=== PATIENT | male | born 1965 | race Caucasian/White ===

== ENCOUNTER 2018-05-12 06:22 | Observation (INO) ==
[2018-05-12] MEDS ORDERED: Ondansetron 4 MG/2 ML VIAL IVP ONE (06:39)
[2018-05-12] MEDS ORDERED: 0.9 % Sodium Chloride 1,000 ML IVC ONE ×3 (06:39→11:55)
[2018-05-12] MEDS ORDERED: *HR* Promethazine 25 MG/ML VIAL IM ONE (06:54)
--- NOTE | 2018-05-12 06:56 | Emergency Department Note ---
Disposition Clinical Impression: Diabetic ketosis, Dehydration Intractable nausea and vomiting Qualifiers: Vomiting type: unspecified Qualified Code(s): R11.2 - Nausea with vomiting, unspecified Disposition: Admitted As Inpatient Condition: Fair Referrals: Aneta Russell MD [Primary Care Provider] - Nausea/Vomiting/Diarrhea HPI - General Chief complaint: ED Nausea/Vomiting/Diarrhea Stated complaint: vomiting x1 month Time Seen by Provider: 05/12/18 06:38 Source: patient, family Mode of arrival: private vehicle Limitations: no limitations Nursing Notes Reviewed: Yes Vital Signs Reviewed: Yes - History of Present Illness Pt Subjective Complaint: nausea, vomiting Onset (ago): month(s) Description of emesis: food contents, watery Number of episodes of emesis: 10 Associated Abdominal Pain: Yes ("Just sore from wretching") If pain, Location of pain: epigastric ("Muscles") Radiation: diffuse Severity: mild Severity scale (1-10): 1 Quality: other ("Sore") Improves with: nothing Worsens with: vomiting Context: recent surgery/procedure, other (Hx of frequent, recurrent, intractable N/V. ) Associated symptoms: Reports: malaise, nausea/vomiting. Denies: myalgias, chest pain, cough, diaphoresis, fever/chills, headaches, loss of appetite, rash, dysuria, shortness of breath, syncope, weakness - Related Data Allergies Allergy/AdvReac Type Severity Reaction Status Date / Time No Known Allergies Allergy Verified 05/12/18 06:27 All systems ED: reviewed and negative except as stated. Review of Systems: As Per HPI Constitutional: Denies: fever, chills, weakness, weight change, night sweats Eyes: Denies: vision change ENT ED: Denies: throat pain, congestion, dysphagia Cardiovascular: Denies: chest pain, palpitations, dyspnea on exertion, orthopnea, syncope Respiratory: Denies: cough, dyspnea, wheezes Gastrointestinal: Reports: as per HPI, abdominal pain, nausea, vomiting. Denies: diarrhea, constipation, hematemesis, melena, hematochezia Genitourinary: Denies: dysuria Musculoskeletal: Denies: back pain, neck pain, joint swelling Integumentary: Denies: rash Neurological: Denies: headache, weakness, vertigo Hematological/Lymphatic: Denies: easy bleeding, easy bruising, lymphadenopathy Past Medical History - Past Medical History Attestation: Yes The following information was validated with the patient. Source: patient Medical history: Reports: diabetes, hyperlipidemia, hypertension, other ("mild stroke" and a "Light heart attack" (no stents)) Psychiatric history: Reports: no psych history - Social History Smoking Status: Unknown if ever smoked Exposure to secondhand smoke: No Smokeless Tobacco Status: No Alcohol use: Reports: none Drug use: Reports: none Physical Exam - General Limitations: no limitations General appearance: alert, in distress (vomiting) - Head Head exam: atraumatic, normocephalic, normal inspection - Eye Eye exam: Present: normal appearance, PERRL. Absent: scleral icterus, conjunctival injection, miosis, mydriasis, periorbital swelling - ENT ENT exam: mucous membranes dry - Neck Neck exam: Present: normal inspection, full ROM, trachea midline. Absent: tenderness, meningismus - Chest Chest inspection: Present: normal inspection - Respiratory Respiratory exam: Present: normal lung sounds bilaterally. Absent: respiratory distress, wheezes, stridor, accessory muscle use, prolonged expiratory phase - Cardiovascular Cardiovascular exam: Present: regular rate, normal rhythm, normal heart sounds - Abdominal Exam Abdominal exam: Present: soft, Non-Tender, diminished bowel sounds. Absent: distention, guarding, rebound, rigidity, organomegaly, ascites, mass, pulsatile mass - Extremities Exam Extremities exam: Present: normal capillary refill. Absent: tenderness - Back Exam Back exam: Present: normal inspection - Neurological Exam Neurological exam: Present: alert, oriented X3, CN II-XII intact, normal gait - Psychiatric Psychiatric exam: Present: normal affect, normal mood - Skin Skin exam: Present: warm, dry, intact, normal color Course Course Narrative: Patient with history of intermittently controlled diabetes, hypertension, hyperlipidemia presents from home with his for evaluation of continued nausea and vomiting. He was seen at [facility] on the third for same complaints. He was admitted, rehydrated, had a CAT scan done which was normal and an EGD done, which showed mild esophagitis diffuse gastritis and bile acid reflux. He was transiently improved and was able to tolerate a "salad that was smaller than my hand." So he was discharged to home. He was given a prescription for omeprazole and Reglan which she did take. He tried to eat dinner - according to the diet restrictions described by the surgeon who did the EGD, but was unable to keep this down. He states that he vomited all night and this morning asked his to bring him here. Patient appears uncomfortable. He is actively vomiting, mostly bilious appearing fluid. There is no blood seen. He is a and O 3. Labs and meds ordered. Labs show diabetic ketosis. No anion gap. Normal pH on venous blood gas. Patient received 2 L of saline, Phenergan, Zofran and Reglan. Upon reevaluation, he states that he is still very nauseated and does not feel like he could tolerate anything by mouth at this time. Case discussed with the hospitalist. Patient has been accepted for admission. Vital Signs Temperature 97.7 F 05/12/18 06:25 Pulse Rate 82 05/12/18 06:25 Respiratory Rate 18 05/12/18 06:25 Blood Pressure 182/87 05/12/18 06:25 O2 Sat by Pulse Oximetry 97 05/12/18 06:25 Temperature 97.7 F 05/12/18 06:59 Pulse Rate 83 05/12/18 10:41 Respiratory Rate 16 05/12/18 09:43 Blood Pressure 185/101 05/12/18 10:41 O2 Sat by Pulse Oximetry 99 05/12/18 10:41 Oxygen Delivery Oxygen Delivery Room Air Nausea/Vomiting/Diarrhea - Medical Records Medical records reviewed: Yes I reviewed the patient's medical records. - Lab Data Lab results reviewed: Yes I reviewed the patient's lab results. Lab results narrative: Laboratory Last Values WBC 11.1 K/mcL (4.3-11.1) 05/12/18 07:07 RBC 4.89 M/mcL (4.19-5.50) 05/12/18 07:07 Hgb 14.2 g/dL (12.9-16.9) 05/12/18 07:07 Hct 41.0 % (37.5-50.1) 05/12/18 07:07 MCV 83.8 fL (83.0-100.0) 05/12/18 07:07 MCH 29.0 pg (28.0-33.3) 05/12/18 07:07 MCHC 34.6 g/dL (31.6-35.5) 05/12/18 07:07 RDW 12.4 % (11.5-14.5) 05/12/18 07:07 Plt Count 233 K/mcL (140-400) 05/12/18 07:07 MPV 11.1 fL (9.4-12.4) 05/12/18 07:07 Immature Gran % 0.5 % (0-4) 05/12/18 07:07 Seg Neutrophils % 82.9 % 05/12/18 07:07 Lymphocytes % 12.1 % 05/12/18 07:07 Monocytes % 4.2 % 05/12/18 07:07 Eosinophils % 0.0 % 05/12/18 07:07 Basophils % 0.3 % 05/12/18 07:07 Neutrophils # 9.2 K/mcL (1.6-8.9) H 05/12/18 07:07 Lymphocytes # 1.3 K/mcL (0.6-4.6) 05/12/18 07:07 Monocytes # 0.5 K/mcL (0.0-1.3) 05/12/18 07:07 Eosinophils # 0.0 K/mcL (0.0-0.6) 05/12/18 07:07 Basophils # 0.0 K/mcL (0.0-0.2) 05/12/18 07:07 VBG pH 7.38 pH Units (7.32-7.42) 05/12/18 10:53 VBG pCO2 42 mmHg (41-51) 05/12/18 10:53 VBG pO2 80 mmHg (25-50) H 05/12/18 10:53 VBG HCO3 25 mEq/L (21-27) 05/12/18 10:53 Sodium 133 mEq/L (136-145) L 05/12/18 07:07 Potassium 3.8 mEq/L (3.5-5.1) 05/12/18 07:07 Chloride 99 mEq/L (98-107) 05/12/18 07:07 Carbon Dioxide 22 mEq/L (23-29) L 05/12/18 07:07 BUN 11 mg/dL (6-20) 05/12/18 07:07 Creatinine 0.68 mg/dL (0.70-1.30) L 05/12/18 07:07 Est GFR ( Amer) > 60 (> 60) 05/12/18 07:07 Est GFR (Non-Af Amer) > 60 (> 60) 05/12/18 07:07 BUN/Creatinine Ratio 16 (6-26) 05/12/18 07:07 Glucose 297 mg/dL (70-105) H 05/12/18 07:07 Calculated Osmolality 286 (280-300) 05/12/18 07:07 Calcium 9.2 mg/dL (8.6-10.3) 05/12/18 07:07 Total Bilirubin 0.6 mg/dL (0.3-1.0) 05/12/18 07:07 AST 27 Units/L (13-39) 05/12/18 07:07 ALT 20 Units/L (7-52) 05/12/18 07:07 Alkaline Phosphatase 77 Units/L (34-104) 05/12/18 07:07 Serum Total Protein 7.1 g/dL (6.4-8.9) 05/12/18 07:07 Albumin 4.3 g/dL (3.5-5.7) 05/12/18 07:07 Globulin 2.8 g/dL (2.4-3.5) 05/12/18 07:07 Albumin/Globulin Ratio 1.5 (1.1-2.2) 05/12/18 07:07 Lipase 7 Units/L (11-82) L 05/12/18 07:07 Beta-Hydroxybutyric Acd 0.75 mmol/L (0.02-0.27) H 05/12/18 08:15 Urine Color Yellow (Yellow) 05/12/18 08:27 Urine Clarity Clear (Clear) 05/12/18 08:27 Urine pH 7.5 pH Units (5.0-8.0) 05/12/18 08:27 Ur Specific [place] 1.028 (1.010-1.025) H 05/12/18 08:27 Urine Protein Negative mg/dL (Neg-Trace) 05/12/18 08:27 Urine Glucose (UA) >=1000 mg/dL (Normal) H 05/12/18 08:27 Urine Ketones 80 mg/dL (Negative) H 05/12/18 08:27 Urine Blood Negative (Negative) 05/12/18 08:27 Urine Nitrite Negative (Negative) 05/12/18 08:27 Urine Bilirubin Negative (Negative) 05/12/18 08:27 Urine Urobilinogen Normal mg/dL (Normal) 05/12/18 08:27 Ur Leukocyte Esterase Negative (Negative) 05/12/18 08:27 Ur Culture Indicated? NO (NO) 05/12/18 08:27 Urine Opiates Screen Negative ng/mL (Adqsmq=997) 05/12/18 08:30 Ur Barbiturates Screen Negative ng/mL (Dzblsn=763) 05/12/18 08:30 Ur Phencyclidine Scrn Negative ng/mL (Cutoff=25) 05/12/18 08:30 Ur Amphetamines Screen Negative ng/mL (Fjdlid=4173) 05/12/18 08:30 U Benzodiazepines Scrn Negative ng/mL (Asrmag=376) 05/12/18 08:30 Urine Cocaine Screen Negative ng/mL (Cutoff= 300) 05/12/18 08:30 U Marijuana (THC) Screen Negative ng/mL (Cutoff = 50) 05/12/18 08:30 Ur Drug Screen Interp See Below 05/12/18 08:30 Result diagrams: 05/12/18 07:07 05/12/18 07:07 Lab Results 05/12/18 05/12/18 05/12/18 Range/Units 07:07 07:07 08:15 WBC 11.1 (4.3-11.1) K/mcL RBC 4.89 (4.19-5.50) M/mcL Hgb 14.2 (12.9-16.9) g/dL Hct 41.0 (37.5-50.1) % MCV 83.8 (83.0-100.0) fL MCH 29.0 (28.0-33.3) pg MCHC 34.6 (31.6-35.5) g/dL RDW 12.4 (11.5-14.5) % Plt Count 233 (140-400) K/mcL MPV 11.1 (9.4-12.4) fL Immature Gran % 0.5 (0-4) % Seg Neutrophils % 82.9 % Lymphocytes % 12.1 % Monocytes % 4.2 % Eosinophils % 0.0 % Basophils % 0.3 % Neutrophils # 9.2 H (1.6-8.9) K/mcL Lymphocytes # 1.3 (0.6-4.6) K/mcL Monocytes # 0.5 (0.0-1.3) K/mcL Eosinophils # 0.0 (0.0-0.6) K/mcL Basophils # 0.0 (0.0-0.2) K/mcL VBG pH (7.32-7.42) pH Units VBG pCO2 (41-51) mmHg VBG pO2 (25-50) mmHg VBG HCO3 (21-27) mEq/L Sodium 133 L (136-145) mEq/L Potassium 3.8 (3.5-5.1) mEq/L Chloride 99 (98-107) mEq/L Carbon Dioxide 22 L (23-29) mEq/L BUN 11 (6-20) mg/dL Creatinine 0.68 L (0.70-1.30) mg/dL Est GFR ( Amer) > 60 (> 60) Est GFR (Non-Af Amer) > 60 (> 60) BUN/Creatinine Ratio 16 (6-26) Glucose 297 H (70-105) mg/dL Calculated Osmolality 286 (280-300) Calcium 9.2 (8.6-10.3) mg/dL Total Bilirubin 0.6 (0.3-1.0) mg/dL AST 27 (13-39) Units/L ALT 20 (7-52) Units/L Alkaline Phosphatase 77 (34-104) Units/L Serum Total Protein 7.1 (6.4-8.9) g/dL Albumin 4.3 (3.5-5.7) g/dL Globulin 2.8 (2.4-3.5) g/dL Albumin/Globulin Ratio 1.5 (1.1-2.2) Lipase 7 L (11-82) Units/L Beta-Hydroxybutyric Acd 0.75 H (0.02-0.27) mmol/L Urine Color (Yellow) Urine Clarity (Clear) Urine pH (5.0-8.0) pH Units Ur Specific [place] (1.010-1.025) Urine Protein (Neg-Trace) mg/dL Urine Glucose (UA) (Normal) mg/dL Urine Ketones (Negative) mg/dL Urine Blood (Negative) Urine Nitrite (Negative) Urine Bilirubin (Negative) Urine Urobilinogen (Normal) mg/dL Ur Leukocyte Esterase (Negative) Ur Culture Indicated? (NO) Urine Opiates Screen (Walmrf=478) ng/mL Ur Barbiturates Screen (Qqqamg=222) ng/mL Ur Phencyclidine Scrn (Cutoff=25) ng/mL Ur Amphetamines Screen (Zisknh=7097) ng/mL U Benzodiazepines Scrn (Qgxssv=891) ng/mL Urine Cocaine Screen (Cutoff= 300) ng/mL U Marijuana (THC) Screen (Cutoff = 50) ng/mL Ur Drug Screen Interp 05/12/18 05/12/18 05/12/18 Range/Units 08:27 08:30 10:53 WBC (4.3-11.1) K/mcL RBC (4.19-5.50) M/mcL Hgb (12.9-16.9) g/dL Hct (37.5-50.1) % MCV (83.0-100.0) fL MCH (28.0-33.3) pg MCHC (31.6-35.5) g/dL RDW (11.5-14.5) % Plt Count (140-400) K/mcL MPV (9.4-12.4) fL Immature Gran % (0-4) % Seg Neutrophils % % Lymphocytes % % Monocytes % % Eosinophils % % Basophils % % Neutrophils # (1.6-8.9) K/mcL Lymphocytes # (0.6-4.6) K/mcL Monocytes # (0.0-1.3) K/mcL Eosinophils # (0.0-0.6) K/mcL Basophils # (0.0-0.2) K/mcL VBG pH 7.38 (7.32-7.42) pH Units VBG pCO2 42 (41-51) mmHg VBG pO2 80 H (25-50) mmHg VBG HCO3 25 (21-27) mEq/L Sodium (136-145) mEq/L Potassium (3.5-5.1) mEq/L Chloride (98-107) mEq/L Carbon Dioxide (23-29) mEq/L BUN (6-20) mg/dL Creatinine (0.70-1.30) mg/dL Est GFR ( Amer) (> 60) Est GFR (Non-Af Amer) (> 60) BUN/Creatinine Ratio (6-26) Glucose (70-105) mg/dL Calculated Osmolality (280-300) Calcium (8.6-10.3) mg/dL Total Bilirubin (0.3-1.0) mg/dL AST (13-39) Units/L ALT (7-52) Units/L Alkaline Phosphatase (34-104) Units/L Serum Total Protein (6.4-8.9) g/dL Albumin (3.5-5.7) g/dL Globulin (2.4-3.5) g/dL Albumin/Globulin Ratio (1.1-2.2) Lipase (11-82) Units/L Beta-Hydroxybutyric Acd (0.02-0.27) mmol/L Urine Color Yellow (Yellow) Urine Clarity Clear (Clear) Urine pH 7.5 (5.0-8.0) pH Units Ur Specific [place] 1.028 H (1.010-1.025) Urine Protein Negative (Neg-Trace) mg/dL Urine Glucose (UA) >=1000 H (Normal) mg/dL Urine Ketones 80 H (Negative) mg/dL Urine Blood Negative (Negative) Urine Nitrite Negative (Negative) Urine Bilirubin Negative (Negative) Urine Urobilinogen Normal (Normal) mg/dL Ur Leukocyte Esterase Negative (Negative) Ur Culture Indicated? NO (NO) Urine Opiates Screen Negative (Brhdrh=302) ng/mL Ur Barbiturates Screen Negative (Tyocor=666) ng/mL Ur Phencyclidine Scrn Negative (Cutoff=25) ng/mL Ur Amphetamines Screen Negative (Rosfny=1988) ng/mL U Benzodiazepines Scrn Negative (Slggkm=150) ng/mL Urine Cocaine Screen Negative (Cutoff= 300) ng/mL U Marijuana (THC) Screen Negative (Cutoff = 50) ng/mL Ur Drug Screen Interp See Below - Radiology Data Radiology results reviewed: Yes I reviewed the patient's radiology results.
[2018-05-12 07:40] LABS: Basophils % 0.3 %; Hemoglobin 14.2 g/dL (12.9-16.9); Immature Granulocytes % 0.5 % (0-4); Lymphocytes # 1.3 K/mcL (0.6-4.6); Lymphocytes % 12.1 %; Mean Corpuscular HGB Conc 34.6 g/dL (31.6-35.5); Mean Corpuscular Volume 83.8 fL (83.0-100.0); Mean Platelet Volume 11.1 fL (9.4-12.4); Monocytes # 0.5 K/mcL (0.0-1.3); Monocytes % 4.2 %; Neutrophils # 9.2 K/mcL (1.6-8.9); Platelet Count 233 K/mcL (140-400); Red Blood Count 4.89 M/mcL (4.19-5.50); Red Cell Distribution Width 12.4 % (11.5-14.5); Segmented Neutrophils % 82.9 %
[2018-05-12 07:47] LABS: Alanine Aminotransferase 20 Units/L (7-52); Albumin 4.3 g/dL (3.5-5.7); Albumin/Globulin Ratio 1.5 (1.1-2.2); Alkaline Phosphatase 77 Units/L (34-104); Aspartate Amino Transferase 27 Units/L (13-39); BUN/Creatinine Ratio 16 (6-26); Bilirubin,Total 0.6 mg/dL (0.3-1.0); Blood Urea Nitrogen 11 mg/dL (6-20); Calcium 9.2 mg/dL (8.6-10.3); Carbon Dioxide 22 mEq/L (23-29); Chloride 99 mEq/L (98-107); Globulin 2.8 g/dL (2.4-3.5); Glucose 297 mg/dL (70-105); Lipase 7 Units/L (11-82); Osmolality,Calculated 286 (280-300); Potassium 3.8 mEq/L (3.5-5.1); Sodium 133 mEq/L (136-145); Total Protein 7.1 g/dL (6.4-8.9); eGFR For Non-African Americans > 60 (> 60)
[2018-05-12 08:50] LABS: Bilirubin,Urine Negative (Negative); Blood,Urine Negative (Negative); Clarity,Urine Clear (Clear); Color,Urine Yellow (Yellow); Glucose,Urine (UA) >=1000 mg/dL (Normal); Ketones,Urine 80 mg/dL (Negative); Leukocyte Esterase,Urine Negative (Negative); Nitrite,Urine Negative (Negative); PH,Urine 7.5 pH Units (5.0-8.0); Protein,Urine Negative (Neg-Trace); Specific Gravity,Urine 1.028 (1.010-1.025); Urobilinogen,Urine Normal (Normal)
[2018-05-12 09:23] LABS: Amphetamine Screen,Urine Negative ng/mL (Cutoff=1000); Barbiturate Screen,Urine Negative ng/mL (Cutoff=200); Benzodiazepines Screen,Urine Negative ng/mL (Cutoff=200); Cannabinoid Screen,Urine Negative ng/mL (Cutoff = 50); Cocaine Screen,Urine Negative ng/mL (Cutoff= 300); Opiate Screen,Urine Negative ng/mL (Cutoff=300); Phencyclidine Screen,Urine Negative ng/mL (Cutoff=25)
[2018-05-12 10:55] LABS: VBG HCO3 25 mEq/L (21-27); VBG PCO2 42 mmHg (41-51); VBG PH 7.38 pH Units (7.32-7.42); VBG PO2 80 mmHg (25-50)
[2018-05-12] MEDS ORDERED: Metoclopramide 20 MG in 0.9 % Sodium Chloride 50 ML IVPB ONE (11:55)
--- NOTE | 2018-05-12 14:04 | Internal Med History&Physical ---
Date of Encounter: 05/12/18 Time of Encounter: 13:15 Internal Medicine - H&P: HPI Chief complaint: Nausea vomiting Admitted From: Home Plans for Post Hospital Care: Home History of present illness: Mr. De Los Santos is a 52 year old male with medical history significant for DMII, HTN, HLD. Pt states that for the last month he was having blood in his stool. EGD done at [facility] yesterday. Pt states that he ate a small salad and followed their recommended diet as well as taking Omeprazole and Reglan and began vomiting last night. He states that he vomited and had nausea all night. He presented to the ED where he was given IVF, Reglan, Phenergan, and Zofran and at the time of my assessment, he was feeling better. He states that his abdomen is sore from vomiting, but is diffusely tender to palpation. He denies any new hematuria or blood in stool. He does report fevers for the last 3 days, states that it was 101 at [place] yesterday. He did not check it at home, he states that he felt warm and achey. He is being admitted for managment of nausea and vomiting, as well as blood glucose. Time spent with pt approximately 20minutes. Past Med Surg Social Fam HX - Past Medical History Medical history: diabetes, hyperlipidemia, hypertension, other ("mild stroke" and a "Light heart attack" (no stents)) Psychiatric history: no psych history - Social History Smoking Status: Unknown if ever smoked Smokeless Tobacco Status: No Alcohol use: none Drug use: none Internal Medicine - H&P: Meds Allergy/AdvReac Type Severity Reaction Status Date / Time No Known Allergies Allergy Verified 05/12/18 06:27 All Systems PM: A 10-system review of systems was performed and is negative for pertinent findings except as documented above in the HPI. - Constitutional Constitutional: fatigue, fever(s), no anorexia, no chills, no falls, no lethargy, no night sweats, no weakness - EENT Eyes: no blurry vision, no decreased night vision, no loss of peripheral vision, no other visual disturbances Ears: no decreased hearing, no ear discharge, no ear pain, no tinnitus Nose, mouth and throat: no facial pain, no nasal congestion, no nasal discharge, no nasal obstruction, no post-nasal drip, no sinus pain, no sinus pressure, no sore throat - Cardiovascular Cardiovascular ROS IM: no chest pain, no edema, no irregular heart rhythm, no lightheadedness, no palpitations, no paroxysmal nocturnal dyspnea, no syncope - Respiratory Respiratory: no cough, no dyspnea, no hemoptysis, no dyspnea on exertion, no stridor - Gastrointestinal Gastrointestinal: abdominal pain, nausea, vomiting, no belching, no bloating, no change in bowel habits, no change in stool character, no coffee ground emesis, no constipation, no cramping, no diarrhea, no dyspepsia, no dysphagia, no early satiety, no excessive flatus, no fecal incontinence, no heartburn, no hematemesis, no hematochezia, no loose stools, no melena, no odynophagia, no tenesmus - Genitourinary Genitourinary ROS male: no dysuria, no urinary frequency, no urinary hesitancy, no urinary incontinence, no urinary urgency - Musculoskeletal Musculoskeletal ROS IM: no back pain, no muscle weakness, no numbness, no stiffness, no tingling Additional comments: Pt reports chronic bilateral leg and foot pain /tingling due to diabetic neuropathy - Integumentary Integumentary IM: no rash, no sores - Neurological Neurological ROS: no abnormal speech, no behavioral changes, no confusion, no dizziness, no focal weakness, no numbness, no tingling, no weakness - Psychiatric Psychiatric: no anxiety, no depression - Constitutional Vitals: Temp Pulse Resp BP Pulse Ox 97.7 F 70 16 164/84 94 05/12/18 06:59 05/12/18 13:36 05/12/18 13:36 05/12/18 13:36 05/12/18 13:36 General appearance: Present: A&O X 3, no acute distress, obese, answers questions appropriately Exam: General: Pt resting quietly on bed, no distress. Skin: pwd, no rashes, lesions, redness Neurological: Pt is alert and awake, oriented x 3, Speech is clear, PERRLA, EOMI, no nystagmus, no pronator drift. strength equal x 4 extremities HEENT: mucous mumbranes moist, no conjuctival pallor Neck: supple, no tracheal deviation, no lymphadenopathy, tenderness, no thyromegaly Heart: S1S2 heard without gallops, clicks, murmurs, no bradycardia or tachyc ardia, pt has no peripheral edema, pedal and radial pulses palpable bilaterally. Lungs: clear throughout without wheezing, rales, or ronchi, respirations are unlabored Abdomen: soft and non tender with bowel sound present, no hepatomegaly. Psych: Normal affect with good eye contact - Head Head exam: Present: atraumatic, normal inspection, normocephalic - Eye Eye exam: Present: EOMI, normal appearance, PERRL, conjuntiva pink, sclera anicteric. Absent: nystagmus Pupils: Present: PERRL - Neck Neck exam general surgery: Present: supple, trachea midline. Absent: lymphadenopathy, tenderness - Respiratory Respiratory exam: Present: CTAB. Absent: accessory muscle use, rales, rhonchi, wheezes - Cardiovascular Cardiovascular exam: Present: RRR, +S1, +S2. Absent: diastolic murmur, gallop, rubs, systolic murmur - GI/Abdominal GI/Abdominal exam: Present: guarding, hyperactive bowel sounds, soft, tenderness. Absent: distended, hepatomegaly, splenomegaly - Extremities Exam Extremities exam: Present: normal inspection, warm, radial pulses palpable and symmetrical. Absent: calf tenderness, cyanotic, pedal edema, tenderness - Neurological Exam Neurological exam: Present: CN II-XII intact, oriented X3, no focal deficits. Absent: pronater drift, facial droop, speech deficit - Skin Skin exam: Present: dry, intact, normal color, warm. Absent: rash Internal Med - H&P Results - Labs CBC & Chem 7: 05/12/18 07:07 05/12/18 07:07 Labs: Short CBC 05/12/18 Range/Units 07:07 WBC 11.1 (4.3-11.1) K/mcL Hgb 14.2 (12.9-16.9) g/dL Hct 41.0 (37.5-50.1) % Plt Count 233 (140-400) K/mcL Neutrophils # 9.2 H (1.6-8.9) K/mcL BMP 05/12/18 07:07 Sodium 133 L Potassium 3.8 Chloride 99 Carbon Dioxide 22 L BUN 11 Creatinine 0.68 L Glucose 297 H Calcium 9.2 Liver Function 05/12/18 Range/Units 07:07 Total Bilirubin 0.6 (0.3-1.0) mg/dL AST 27 (13-39) Units/L ALT 20 (7-52) Units/L Alkaline Phosphatase 77 (34-104) Units/L Albumin 4.3 (3.5-5.7) g/dL Urine 05/12/18 Range/Units 08:27 Urine Color Yellow (Yellow) Urine Clarity Clear (Clear) Urine pH 7.5 (5.0-8.0) pH Units Ur Specific [place] 1.028 H (1.010-1.025) Urine Protein Negative (Neg-Trace) mg/dL Urine Glucose (UA) >=1000 H (Normal) mg/dL - ABG Interpretation ABG results: 05/12/18 10:53 VBG pH 7.38 VBG pCO2 42 VBG pO2 80 H VBG HCO3 25 - Impressions ITS Impressions Chest/Abdomen X-ray 05/12/18 06:57 IMPRESSION: 1. No acute pulmonary process. 2. No acute abdominal process. D/ / 05/12/2018 08:23:39 Fede Monzon [facility] / [facility] Interpreting Provider: Fede Monzon MD - Assessment and plan (1) Abdominal pain Current Visit: Yes Status: Acute Assessment and plan: 1 day s/p EGD at [facility]. EGD completed for GI bleeding about one month ago, none since. Pt states that his abdomen is sore from vomiting, but is diffusely tender to palpation. CT abdomen with contrast ordered and pending. Qualifiers: Abdominal location: generalized Qualified Code(s): R10.84 - Generalized abdominal pain (2) HTN (hypertension) Current Visit: Yes Status: Acute Assessment and plan: Chronic. Pt has not been able to tolerate po Hydralazine prn as ordered Continue home medications when reconciled and pt can tolerate po. Vitals per admission orders. Qualifiers: Hypertension type: essential hypertension Qualified Code(s): I10 - Essential (primary) hypertension (3) HLD (hyperlipidemia) Current Visit: Yes Status: Acute Assessment and plan: Chronic. Continue home medications when reconciled and pt can tolerate po Qualifiers: Hyperlipidemia type: unspecified Qualified Code(s): E78.5 - Hyperlipidemia, unspecified (4) Diabetes Current Visit: Yes Status: Acute Assessment and plan: Chronic. Uncontrolled. A1c 10.0% in October,. [facility] Clear liquid diet now, advance as tolerated IVF hydration A1c in a.m. No DKA, gap 9.0, pH 7.38. Urine + for ketones. Qualifiers: Diabetes mellitus type: type 2 Diabetes mellitus terminal gauger insulin use: unspecified jail insulin use status Diabetes mellitus complication status: with neurologic complications Diabetes mellitus complication detail: with mononeuropathy Qualified Code(s): E11.41 - Type 2 diabetes mellitus with diabetic mononeuropathy (5) Dehydration Current Visit: Yes Status: Acute Assessment and plan: Continue IVF hydration, watch for overload. Pt received 3 liter bolus in the ED Secondary to intractable vomiting Na+ 133, corrected for hyperglycemia 136, normal (6) Diabetic ketosis Current Visit: Yes Status: Acute Assessment and plan: Plan as above (7) Intractable nausea and vomiting Current Visit: Yes Status: Acute Assessment and plan: ONset last night s/p EGD. Zofran and phenergan PRN as ordered IVF hydration Pt feeling better in ED after Zofran, REglan, and Phenergan Pt reports fever at home for 3 days, 101 at [place] yesterday, afebrile here. Flu and respiratory panel ordered and pending. Qualifiers: Vomiting type: unspecified Qualified Code(s): R11.2 - Nausea with vomiting, unspecified - Time Spent With Patient Total time spent is greater than 50% in coordination of care (as documented) at patient's floor/unit and/or counseling patient: less than 15 minutes
[2018-05-12] MEDS ORDERED: Naloxone 0.4 MG/ML INJ IVP PRN (14:11)
[2018-05-12] MEDS ORDERED: Ketorolac 15 MG/ML VIAL IVP PRN (14:11)
[2018-05-12] MEDS ORDERED: Dextrose Gel 15 GM/37.5 ML TUBE PO PRN ×2 (14:15)
[2018-05-12] MEDS ORDERED: *HR* Dextrose 50 % in Water (Syg) 50 ML SYRINGE IVP PRN (14:15)
[2018-05-12] MEDS ORDERED: D5% in Water 1,000 ML IVC PRN (14:15)
[2018-05-12] MEDS ORDERED: 0.9 % Sodium Chloride 1,000 ML IVC SCH (14:15)
[2018-05-12] MEDS ORDERED: Isovue-370 500 ML BOTTLE IVP ONE (14:17)
[2018-05-12] MEDS: Ondansetron 4 MG/2 ML VIAL IVP PRN (15:23)
[2018-05-12] MEDS: Insulin LISPRO 300 UNITS/3 ML VIAL SQ SCH (16:50)
[2018-05-12] MEDS: *HR* Promethazine 25 MG/ML VIAL IVP PRN (18:31)
[2018-05-13] MEDS: Ondansetron 4 MG/2 ML VIAL IVP PRN ×2 (06:36→17:36)
[2018-05-13] MEDS: *HR* Enoxaparin 40 MG/0.4 ML SYRINGE SQ SCH (06:36)
[2018-05-13 07:30] LABS: Basophils % 0.3 %; Eosinophils % 0.3 %; Hematocrit 37.1 % (37.5-50.1); Hemoglobin 13.3 g/dL (12.9-16.9); Immature Granulocytes % 0.3 % (0-4); Lymphocytes # 1.9 K/mcL (0.6-4.6); Lymphocytes % 20.5 %; Mean Corpuscular HGB Conc 35.8 g/dL (31.6-35.5); Mean Corpuscular Hemoglobin 29.9 pg (28.0-33.3); Mean Corpuscular Volume 83.4 fL (83.0-100.0); Mean Platelet Volume 10.7 fL (9.4-12.4); Monocytes # 0.7 K/mcL (0.0-1.3); Monocytes % 7.2 %; Neutrophils # 6.6 K/mcL (1.6-8.9); Platelet Count 207 K/mcL (140-400); Red Blood Count 4.45 M/mcL (4.19-5.50); Red Cell Distribution Width 12.6 % (11.5-14.5); Segmented Neutrophils % 71.4 %
[2018-05-13 07:48] LABS: BUN/Creatinine Ratio 15 (6-26); Blood Urea Nitrogen 8 mg/dL (6-20); Calcium 8.7 mg/dL (8.6-10.3); Carbon Dioxide 24 mEq/L (23-29); Chloride 102 mEq/L (98-107); Glucose 265 mg/dL (70-105); Osmolality,Calculated 286 (280-300); Potassium 3.4 mEq/L (3.5-5.1); Sodium 134 mEq/L (136-145); eGFR For Non-African Americans > 60 (> 60)
[2018-05-13] MEDS ORDERED: Potassium Chloride Elixir 20 MEQ/15 ML UDC PO ONE (08:03)
[2018-05-13] MEDS: Insulin LISPRO 300 UNITS/3 ML VIAL SQ SCH ×3 (08:08→16:14)
[2018-05-13 08:26] LABS: Estimated Average Glucose 209 mg/dl; Hemoglobin A1C 8.9 %
[2018-05-13 08:58] LABS: Magnesium 1.9 mg/dL (1.6-2.6)
--- NOTE | 2018-05-13 09:38 | Internal Med Progress Note ---
<Tanesha Anderson - Last Filed: 05/13/18 14:50> Hospitalist Progress Note - Encounter Date of Encounter: 05/13/18 - Exam Vitals: Temp Pulse Resp BP Pulse Ox 99.9 F H 71 15 161/76 95 05/13/18 14:23 05/13/18 14:23 05/13/18 14:23 05/13/18 14:23 05/13/18 14:23 - Assessment and Plan (1) Intractable nausea and vomiting Current Visit: Yes Status: Acute (2) Diabetic ketosis Current Visit: Yes Status: Acute (3) Dehydration Current Visit: Yes Status: Acute (4) Abdominal pain Current Visit: Yes Status: Acute (5) HTN (hypertension) Current Visit: Yes Status: Acute (6) HLD (hyperlipidemia) Current Visit: Yes Status: Acute (7) Diabetes Current Visit: Yes Status: Acute - Time Spent with Patient Total time spent is greater than 50% in coordination of care (as documented) at patient's floor/unit and/or counseling patient: Internal Medicine: Result - Labs CBC & Chem 7: 05/13/18 07:10 05/13/18 07:10 Labs: Short CBC 05/13/18 Range/Units 07:10 WBC 9.3 (4.3-11.1) K/mcL Hgb 13.3 (12.9-16.9) g/dL Hct 37.1 L (37.5-50.1) % Plt Count 207 (140-400) K/mcL Neutrophils # 6.6 (1.6-8.9) K/mcL BMP 05/13/18 07:10 Sodium 134 L Potassium 3.4 L Chloride 102 Carbon Dioxide 24 BUN 8 Creatinine 0.55 L Glucose 265 H Calcium 8.7 - Impressions Impressions Abdomen/Pelvis CT 05/12/18 17:30 IMPRESSION: 1. 2.5 cm soft tissue mass in the left mesentery. Differential considerations are metastatic lymph node, peritoneal metastasis, lymphoma, gastrointestinal stromal tumor. 2. Multiple mildly enlarged lymph nodes in the left mesentery and retroperitoneum. 3. 1.8 cm circumscribed low attenuated lesion below the right inferior pulmonary vein. It may represent a pericardial cyst or lymph node. Recommend chest CT with IV contrast for better assessment. 4. Diffuse fatty infiltration of the liver. D/ / Ann Charles MD / Ann Charles MD Interpreting Provider: Ann Charles MD Chest CT 05/13/18 12:30 IMPRESSION: 1. The lesion inferior posterior mediastinum described yesterday as adjacent to the right pulmonary vein is a benign pericardial cyst requiring no additional evaluation or follow-up. 2. Remainder of the CT chest is unremarkable. D/ / Ramiro Almanza / Ramiro Almanza Interpreting Provider: Ramiro Almanza Consult Discharge Plan - Plan Referrals: Aneta Russell MD [Primary Care Provider] - - Attending Attestation The history, physical exam, and medical decision making was performed by medical student Parisi either while I was physically present and actively involved or I personally re-performed the exam and medical decision making. I have verified the accuracy of the medical student's documentation with regards to the history, physical exam findings, and medical decision making. Mr De Los Santos is being observed for intractable nausea and emesis after EGD at another facility awake, family at bedside. continued nausea and emesis of clear liquid diet currently ordered. He has diffuse abd discomfort, not sharp or stbbing in nature but sore, non focal. Normal bm last night, no blood, no diarrhea. No family sick contacts. No fevers, chills today. no nightsweats or unintentional weight loss. denies lad. updated to CT scan results and denies prior hx of node enlargement on imaging. gen- alert, awake,appears stated age, obese eyes- pupils equal round, no scleral icterus cv- reg rate and rhythm, normal s1,s2, no murmurs appreciated, no le edema lungs- ctabl, no wheezing, rhonchi or crackles, normal resp effort on room air abd- soft, diffusely tender,no guarding, NOT rigid, non distended, + bs skin- no rash or jaundice neuro- AAOx3 Intractable n/v- unclear etiology, may be related to elevated bs, does not examine as a post procedural acute abdomen, not consistent with ACS, CT a/p without etiology identified prn anti emetics, ADAT, cont to monitor HTN- he believes he takes lisinipril at home, however this was not confirmed by pharmacy, cont prn IV hydralazine given he cannot take PO currently, cont to monitor, will require outpt fu with PCP DM with Hyperglycemia, uncontrolled- not DKA picture- IVFs on admit, A1C in 8.9, bs in 200s, cont SSI and accu checks, change clear liquids to diabetic clears, takes victoza and 20 units lantus hs at home, will begin lower dose levemir tonight Incidental CT a/p Finding of left mesenteric 2.5cm mass and multiple left mesent omega and retroperitoneal LAD- oncology consult to eval for need for tissue sampling and CT chest with contrast to further eval noted node vs cyst just inferior to right pulm vein <Gianfranco Parisi - Last Filed: 05/13/18 15:17> Hospitalist Progress Note - Encounter Date of Encounter: 05/13/18 Time of Encounter: 09:33 - Subjective Interval History: Upon entering the room Mr. De Los Santos is lying comfortably in bed. He admits to nausea and vomitting a clear liquid this morning after his liquid breakfast. He admits chills and feeling feverish. He denies myalgias, arthralgias, diarrhea, rhinnorhea. He appears frustrated. He wants to speak with a doctor and claims "no one has came to speak to me yet" - Exam Vitals: Temp Pulse Resp BP Pulse Ox 98.7 F 60 15 161/85 95 05/13/18 06:32 05/13/18 06:32 05/13/18 06:32 05/13/18 06:33 05/13/18 08:16 Exam: General: Patient lying bed, NAD. Skin: warm, dry, intact, no erythema Neurological: A & O x3, strength 5/5 bilateral UE's and LE's, PERRLA HEENT: mucous membranes moist, no conjuctival pallor, no scleral icterus Neck: supple, trachea midline, no cervical lymphadenopathy Heart: RRR, no murmurs, rubs, gallops, S1 and S2 heard, no pedal edema Lungs: CTA B/L, no rales, rhonchi, wheezing. Symmetric chest expansion with good air entry Abdomen: soft. Mild diffuse tenderness. No guarding, no rebound tenderness. Bowel sounds present. Psych: Appropriate affect and eye contact - Assessment and Plan (1) Mesenteric mass Current Visit: Yes Status: Acute Assessment and Plan: -Onset 05/11/18 s/p EGD. -Continue Zofran, phenergan PRN. Continue Reglan -Continue IVF hydration -Due to patient reporting a fever at home for 3 days duration and a temperature of 101 at [facility] on 05/11/18 a respiratory and flu panel was ordered -Serology for respiratory/flu negative. CT of abdomen and Pelvis demonstrates: -2.5 cm soft tissue mass in the left mesentery. Differential considerations are metastatic lymph node, peritoneal metastasis, lymphoma, gastrointestinal stromal tumor. -Multiple mildly enlarged lymph nodes in the left mesentery and retroperitoneum. -1.8 cm circumscribed low attenuated lesion below the right inferior pulmonary vein. It may represent a pericardial cyst or lymph node. Recommend chest CT with IV contrast for better assessment. -Diffuse fatty infiltration of the liver. -Hem/Onc consult appreciated (2) Diabetes Current Visit: Yes Status: Acute Assessment and Plan: Chronic uncontrolled DM A1c 10.0% 10/22, 8.9% 05/13/18 -Continue steady state insulin -Accuchecks q4 -continue clear liquid diet and advance as he can tolerate -Continue IV fluid hydration -No DKA supported by anion gap of 9.0 -Urine positive for ketones -pH 7.38 (3) Dehydration Current Visit: Yes Status: Acute Assessment and Plan: Continue IVF hydration (4) HTN (hypertension) Current Visit: Yes Status: Acute Assessment and Plan: Chronic HTN. -Due to intractable nausea and vomitting patient cannot tolerate PO -IV Hydralazine PRN until patient can tolerate home meds PO - Time Spent with Patient Total time spent is greater than 50% in coordination of care (as documented) at patient's floor/unit and/or counseling patient: Internal Medicine: Result - Labs CBC & Chem 7: 05/13/18 07:10 05/13/18 07:10 Labs: Short CBC 05/13/18 Range/Units 07:10 WBC 9.3 (4.3-11.1) K/mcL Hgb 13.3 (12.9-16.9) g/dL Hct 37.1 L (37.5-50.1) % Plt Count 207 (140-400) K/mcL Neutrophils # 6.6 (1.6-8.9) K/mcL BMP 05/13/18 07:10 Sodium 134 L Potassium 3.4 L Chloride 102 Carbon Dioxide 24 BUN 8 Creatinine 0.55 L Glucose 265 H Calcium 8.7 - Impressions Impressions Chest/Abdomen X-ray 05/12/18 06:57 IMPRESSION: 1. No acute pulmonary process. 2. No acute abdominal process. D/ / 05/12/2018 08:23:39 Fede Monzon MD / dot Interpreting Provider: Fede Monzon MD Abdomen/Pelvis CT 05/12/18 17:30 IMPRESSION: 1. 2.5 cm soft tissue mass in the left mesentery. Differential considerations are metastatic lymph node, peritoneal metastasis, lymphoma, gastrointestinal stromal tumor. 2. Multiple mildly enlarged lymph nodes in the left mesentery and retroperitoneum. 3. 1.8 cm circumscribed low attenuated lesion below the right inferior pulmonary vein. It may represent a pericardial cyst or lymph node. Recommend chest CT with IV contrast for better assessment. 4. Diffuse fatty infiltration of the liver. D/ / Ann Charles MD / Ann Charles MD Interpreting Provider: Ann Charles MD <Tanesha Anderson - Last Filed: 05/13/18 14:50> (1) Intractable nausea and vomiting Qualifiers: Vomiting type: unspecified Qualified Code(s): R11.2 - Nausea with vomiting, unspecified (4) Abdominal pain Qualifiers: Abdominal location: generalized Qualified Code(s): R10.84 - Generalized abdominal pain (5) HTN (hypertension) Qualifiers: Hypertension type: essential hypertension Qualified Code(s): I10 - Essential (primary) hypertension (6) HLD (hyperlipidemia) Qualifiers: Hyperlipidemia type: unspecified Qualified Code(s): E78.5 - Hyperlipidemia, unspecified (7) Diabetes Qualifiers: Diabetes mellitus type: type 2 Diabetes mellitus [facility] insulin use: unspecified [facility] terminal insulin use status Diabetes mellitus complication status: with neurologic complications Diabetes mellitus complication detail: with mononeuropathy Qualified Code(s): E11.41 - Type 2 diabetes mellitus with diabetic mononeuropathy <Gianfranco Parisi - Last Filed: 05/13/18 15:17> (2) Diabetes Qualifiers: Diabetes mellitus type: type 2 Diabetes mellitus [facility] insulin use: unspecified [facility] insulin use status Diabetes mellitus complication status: with neurologic complications Diabetes mellitus complication detail: with mononeuropathy Qualified Code(s): E11.41 - Type 2 diabetes mellitus with diabetic mononeuropathy (4) HTN (hypertension) Qualifiers: Hypertension type: essential hypertension Qualified Code(s): I10 - Essential (primary) hypertension
[2018-05-13] MEDS: *HR* Promethazine 25 MG/ML VIAL IVP PRN ×2 (10:11→16:08)
[2018-05-13 11:30] LABS: Adenovirus Not Detected (Not Detect); Bordetella Pertussis Not Detected (Not Detect); Chlamydophila pneumoniae Not Detected (Not Detect); Coronavirus 229E Not Detected (Not Detect); Coronavirus HKU1 Not Detected (Not Detect); Coronavirus NL63 Not Detected (Not Detect); Coronavirus OC43 Not Detected (Not Detect); Human Metapneumovirus Not Detected (Not Detect); Human Rhinovirus/Enterovirus Not Detected (Not Detect); Influenza A Subtype 2009 H1 Not Detected (Not Detect); Influenza A Untypeable Not Detected (Not Detect); Influenza B Not Detected (Not Detect); Mycoplasma pneumoniae Not Detected (Not Detect); Parainfluenza Virus 1 Not Detected (Not Detect); Parainfluenza Virus 2 Not Detected (Not Detect); Parainfluenza Virus 3 Not Detected (Not Detect); Parainfluenza Virus 4 Not Detected (Not Detect); Respiratory Syncytial Virus Not Detected (Not Detect)
[2018-05-13] MEDS ORDERED: Isovue-370 500 ML BOTTLE IVP ONE (11:38)
[2018-05-13] MEDS ORDERED: 0.9 % Sodium Chloride 1,000 ML IVC SCH (12:00)
[2018-05-13] MEDS: Gabapentin 300 MG CAPSULE PO SCH ×3 (12:11→20:45)
--- NOTE | 2018-05-13 15:04 | Oncology Inp Consult Note ---
<Bianca Elaine L - Last Filed: 05/13/18 18:17> Date of Encounter: 05/13/18 Time of Encounter: 15:15 Assessment and Plan (1) Mesenteric mass Status: Acute Assessment and plan: CT of abdomen and pelvis notes 2.5 cm soft tissue mass in the left mesentery along with multiple mildly enlarged lymph nodes in the left mesentery and retroperitoneum. CT of the chest with contrast negative for findings concerning for malignancy or metastatic disease Findings may be concerning for reactive process, underlying lymphoma, metastatic disease from colon or other primary, GIST, among others Plan: Check LDH, CEA Surgery consulted for further recommendations, patient would likely benefit from colonoscopy given his presenting symptoms, dependent upon colonoscopy findings we will need tissue diagnosis, if colonoscopy unrevealing consider surgical exci davey of mesenteric mass versus percutaneous needle biopsy As discussed above etiology remains quite broad, further recommendations pending tissue diagnosis Recommend continued symptom management of nausea and vomiting - Data of Consult Patient: new to practice Consult date: 05/13/18 Requesting Physician: Tanesha Anderson Primary Care Provider: Aneta Russell MD - Consult Narrative Reason for consult: Mass in mesentery History of present illness: Mr. De Los Santos is a 52 year old male with past medical history significant for DMII, HTN, HLD. Patient has had a constellation of worsening GI symptoms over the past month including persistent nausea, vomiting, constipation, diarrhea, hematochezia, melena, poor appetite and weight loss. With GI symptoms he also reports intermittent fevers up to 101, chills and drenching night sweats. He is initially planned for GI consultation however symptoms worsened over the weekend which led to presentation at [facility]. Patient states he had an EGD performed which was reportedly negative. H presented to [facility] the day following discharge for refractory nausea and vomiting lasting throughout the night. He had a CT of the abdomen and pelvis which revealed a 2.5 cm soft tissue mass in the left mesentery. CT of the chest negative for any concerning metastatic or malignant findings. He has no personal history of cancer. He denies chest pain, shortness of breath, any palpable lymphadenopathy, headache, as you will changes, abdominal pain, urinary complaint, edema or lower extremity pain. He has chronic benign positional vertigo as well as peripheral neuropathy. He states he has not noticed any melena or hematochezia in about 2-3 weeks. Non smoker. Past Med Surg Social Fam HX - Past Medical History Medical history: CVA, diabetes, hyperlipidemia, hypertension Psychiatric history: no psych history - Past Surgical History Surgical History: appendectomy, herniorrhaphy - Social History Smoking Status: Never smoker Smokeless Tobacco Status: No Alcohol use: none Drug use: none Medications and Allergies Gabapentin [Neurontin] 300 mg PO 6XD 05/12/18 [History] Insulin Glargine,Hum.rec.anlog [Basaglar Kwikpen U-100] 20 unit SQ DAILY 05/12/18 [History] Liraglutide [Victoza 2-Eduardo] 1.2 mg SQ DAILY 05/12/18 [History] Methadone 10 mg PO BID 05/12/18 [History] Metoclopramide HCl 5 mg PO QID 05/12/18 [History] Ondansetron HCl [Zofran] 4 mg PO Q8HR PRN 05/12/18 [History] Pantoprazole Sodium [Protonix] 40 mg PO DAILY 05/12/18 [History] Sertraline [Zoloft] 50 mg PO DAILY 05/12/18 [History] Sucralfate [Carafate] 10 ml PO QID 05/12/18 [History] Sulindac 150 mg PO BID 05/12/18 [History] Allergy/AdvReac Type Severity Reaction Status Date / Time No Known Allergies Allergy Verified 05/12/18 06:27 Constitutional: Present: anorexia, chills, fatigue, fever(s), malaise, night sweats, weakness, weight loss. Absent: frequent falls Eyes: Absent: blurry vision, change in vision Nose, mouth and throat: Absent: dysphagia, odynophagia Cardiovascular: Absent: chest pain, palpitations Respiratory: Absent: cough, dyspnea, hemoptysis Gastrointestinal: Present: as per HPI, change in bowel habits, constipation, diarrhea, early satiety, hematemesis, hematochezia, melena, nausea, vomiting. Absent: bloating Genitourinary: Absent: dysuria, hematuria Musculoskeletal: Present: muscle weakness, myalgias Integumentary: Absent: rash, wounds Neurological: Present: paresthesias. Absent: focal weakness, frequent falls Psychiatric: Present: as per HPI Hematologic/Lymphatic: Present: as per HPI Oncology - Exam - Constitutional General appearance: cooperative, no acute distress, no febrile - Head Head exam: Present: atraumatic - ENT ENT exam: Present: mucous membranes moist, normal oropharynx - Respiratory Respiratory exam: Present: decreased breath sounds, CTAB. Absent: respiratory distress - Cardiovascular Cardiovascular exam: Present: RRR, +S1, +S2 - GI/Abdominal GI/Abdominal exam: Present: hypoactive bowel sounds, soft, tenderness. Absent: guarding, rebound Additional comments: diffuse tenderness to palpation - Extremities Exam Extremities exam: Present: normal inspection. Absent: calf tenderness - Neurological Exam Neurological exam: Present: alert, oriented X3, no focal deficits, strengths equal and symetr throughout - Psychiatric Psychiatric exam: Present: normal affect, normal mood - Skin Skin exam: Present: dry, intact, normal color, warm Consult Discharge Plan - Plan Referrals: Aneta Russell MD [Primary Care Provider] - Inpatient Charges Provider: Dr. Josefa Minor <Leonidas Minor - Last Filed: 05/13/18 21:31> Date of Encounter: 05/13/18 - Data of Consult Requesting Physician: Tanesha Anderson Primary Care Provider: Aneta Russell MD - Attending Attestation I examined this patient and my medical decision-making was reviewed with the Advanced Practice Nurse. I agree with the documented findings, disposition and treatment plan as described except to the extent set forth below. This gentleman has progressive abdominal pain, N/V and abnormal bowel habits. Has had melena and hematochezia recently as well as 20 pound weight loss. On exam, he is uncomfortable with diffuse abdominal pain. He has diffuse tenderness but no rebound or guarding. He is very anxious. Personal review of his CT scan reveals a 2.5 cm mass in the left mesentery and nonspecific mesenteric and RP prominent lymph nodes. Given his sx, I am concerned he has colonic malignancy. CEA assessed. Surgery consulted for colonoscopy and possible surgical evaluation. Lesion does appear amenable to CT-guided biopsy if deemed necessary although colonoscopy and possible surgical evaluation for carcinomatosis preferred given presentation. Inpatient Charges Provider: Dr. Josefa Minor Consult - Inpatient: [id number]
[2018-05-13] MEDS: Insulin DETEMIR 100 UNIT/ML X5UNITS SQ SCH (20:45)
[2018-05-13] MEDS: *HR* Methadone 10 MG TABLET PO SCH (20:45)
--- NOTE | 2018-05-13 23:46 | General Surgery Consult Note ---
Date of Encounter: 05/13/18 Time of Encounter: 23:40 Assessment and Plan (1) Nausea & vomiting Current Visit: Yes Status: Acute 52M with persistent nausea, vomiting, blood stools with associated weight loss; CT scan concerning for mesenteric mass vs enlarged lymph nodes NPO bowel prep IVF plan for colonoscopy trend h/h no acute surgery at present Qualifiers: Vomiting type: unspecified Vomiting Intractability: unspecified Qualified Code(s): R11.2 - Nausea with vomiting, unspecified History of Present Illness Consult date: 05/13/18 History of present illness: 52 year old male PMH significant for DM, HTN, HLD who presents with one month history of nausea and vomiting and PO intolerance. The patient states it happens with any attempt at eating. No associated fevers, chills, chest pain nor shortness of breath. no reports of sick contacts. The patient states that he has lost weight over the last few days due to his symptoms, but then states that over the last six months he has lost quite a bit of weight unintentionally. Investigating further the patient has had blood stools over the last two weeks. His last colonoscopy was over ten years ago and he states that there were no abnormalities. He had a recent EGD at an OSH which was unremarkable. A CT of the abdomen was obtained, which was reviewed and interpreted by me. I was able to visualize a mass, but there did appear to several enlarged lymph nodes and possible mesenteric mass. Surgery was consulted for management recommendations. . Past Med Surg Social Fam HX - Past Medical History Medical history: CVA, diabetes, hyperlipidemia, hypertension Psychiatric history: no psych history - Past Surgical History Surgical History: appendectomy, herniorrhaphy - Social History Smoking Status: Never smoker Smokeless Tobacco Status: No Alcohol use: none Drug use: none - Additional Family History Additional family history: non contributory Medications and Allergies Gabapentin [Neurontin] 300 mg PO 6XD 05/12/18 [History] Insulin Glargine,Hum.rec.anlog [Basaglar Kwikpen U-100] 20 unit SQ DAILY 05/12 [History] Liraglutide [Victoza 2-Eduardo] 1.2 mg SQ DAILY 05/12/18 [History] Methadone 10 mg PO BID 05/12/18 [History] Metoclopramide HCl 5 mg PO QID 05/12/18 [History] Ondansetron HCl [Zofran] 4 mg PO Q8HR PRN 05/12/18 [History] Pantoprazole Sodium [Protonix] 40 mg PO DAILY 05/12/18 [History] Sertraline [Zoloft] 50 mg PO DAILY 05/12/18 [History] Sucralfate [Carafate] 10 ml PO QID 05/12/18 [History] Sulindac 150 mg PO BID 05/12/18 [History] Allergy/AdvReac Type Severity Reaction Status Date / Time No Known Allergies Allergy Verified 05/12/18 06:27 Review of Systems All systems PM: 12 point ROS negative besides HPI findings General Surgery Exam Initial Vital Signs Temp Pulse Resp BP Pulse Ox 97.7 F 82 18 182/87 97 05/12/18 06:25 05/12/18 06:25 05/12/18 06:25 05/12/18 06:25 05/12/18 06:25 - General physical appearance no distress - Eyes normal ocular movement - ENT normocephalic - Neck trachea midline, no lymphadectomy - Respiratory normal expansion, normal respiratory effort - Cardiovascular Cardiovascular exam: Present: RRR - Abdomen Abdomen general surgery: Present: soft, non tender - Integumentary Integumentary general surgery: Present: warm and dry - Neurologic Present: CN 2-12 grossly intact - Musculoskeletal Present: normal posture - Psychiatric Psychiatric general surgery: Present: A&Ox3 Exam Initial Vital Signs Temp Pulse Resp BP Pulse Ox 97.7 F 82 18 182/87 97 05/12/18 06:25 05/12/18 06:25 05/12/18 06:25 05/12/18 06:25 05/12/18 06:25 Results - Labs 05/13/18 07:10 05/13/18 07:10 Abnormal lab results Hct 37.1 % (37.5-50.1) L 05/13/18 07:10 MCHC 35.8 g/dL (31.6-35.5) H 05/13/18 07:10 VBG pO2 80 mmHg (25-50) H 05/12/18 10:53 Sodium 134 mEq/L (136-145) L 05/13/18 07:10 Potassium 3.4 mEq/L (3.5-5.1) L 05/13/18 07:10 Creatinine 0.55 mg/dL (0.70-1.30) L 05/13/18 07:10 Glucose 265 mg/dL (70-105) H 05/13/18 07:10 POC Glucose 202 mg/dL (70-99) H 05/13/18 20:15 Hemoglobin A1c 8.9 % (-5.6) H 05/13/18 07:10 Lipase 7 Units/L (11-82) L 05/12/18 07:07 Beta-Hydroxybutyric Acd 0.75 mmol/L (0.02-0.27) H 05/12/18 08:15 Ur Specific Cullen 1.028 (1.010-1.025) H 05/12/18 08:27 Urine Glucose (UA) >=1000 mg/dL (Normal) H 05/12/18 08:27 Urine Ketones 80 mg/dL (Negative) H 05/12/18 08:27 Diabetes panel 05/13/18 05/13/18 Range/Units 07:10 07:10 Sodium 134 L (136-145) mEq/L Potassium 3.4 L (3.5-5.1) mEq/L Chloride 102 (98-107) mEq/L Carbon Dioxide 24 (23-29) mEq/L BUN 8 (6-20) mg/dL Creatinine 0.55 L (0.70-1.30) mg/dL Glucose 265 H (70-105) mg/dL Hemoglobin A1c 8.9 H ( - 5.6) % Calcium 8.7 (8.6-10.3) mg/dL Calcium panel 05/13/18 Range/Units 07:10 Calcium 8.7 (8.6-10.3) mg/dL Pituitary panel 05/13/18 Range/Units 07:10 Sodium 134 L (136-145) mEq/L Potassium 3.4 L (3.5-5.1) mEq/L Chloride 102 (98-107) mEq/L Carbon Dioxide 24 (23-29) mEq/L BUN 8 (6-20) mg/dL Creatinine 0.55 L (0.70-1.30) mg/dL Glucose 265 H (70-105) mg/dL Calcium 8.7 (8.6-10.3) mg/dL Adrenal panel 05/13/18 Range/Units 07:10 Sodium 134 L (136-145) mEq/L Potassium 3.4 L (3.5-5.1) mEq/L Chloride 102 (98-107) mEq/L Carbon Dioxide 24 (23-29) mEq/L BUN 8 (6-20) mg/dL Creatinine 0.55 L (0.70-1.30) mg/dL Glucose 265 H (70-105) mg/dL Calcium 8.7 (8.6-10.3) mg/dL All other labs normal. - Imaging CT scan - abdomen: report reviewed, image reviewed CT scan - chest: report reviewed, image reviewed CT scan - pelvis: report reviewed, image reviewed Consult Discharge Plan - Plan Referrals: Aneta Russell MD [Primary Care Provider] -
[2018-05-14 05:55] LABS: BUN/Creatinine Ratio 11 (6-26); Blood Urea Nitrogen 8 mg/dL (6-20); Calcium 8.9 mg/dL (8.6-10.3); Carbon Dioxide 26 mEq/L (23-29); Chloride 103 mEq/L (98-107); Glucose 211 mg/dL (70-105); Osmolality,Calculated 293 (280-300); Potassium 3.5 mEq/L (3.5-5.1); Sodium 139 mEq/L (136-145); eGFR For Non-African Americans > 60 (> 60)
[2018-05-14] MEDS: Gabapentin 300 MG CAPSULE PO SCH ×6 (06:35→21:25)
[2018-05-14] MEDS: *HR* Enoxaparin 40 MG/0.4 ML SYRINGE SQ SCH (06:36)
[2018-05-14 06:45] LABS: Hematocrit 40.1 % (37.5-50.1); Hemoglobin 14.3 g/dL (12.9-16.9); Mean Corpuscular HGB Conc 35.7 g/dL (31.6-35.5); Mean Corpuscular Hemoglobin 30.1 pg (28.0-33.3); Mean Corpuscular Volume 84.4 fL (83.0-100.0); Mean Platelet Volume 10.6 fL (9.4-12.4); Platelet Count 191 K/mcL (140-400); Red Blood Count 4.75 M/mcL (4.19-5.50); Red Cell Distribution Width 12.7 % (11.5-14.5)
[2018-05-14 06:52] LABS: INR 1.1; Prothrombin Time 12.9 Seconds (9.4-12.1)
[2018-05-14 07:14] LABS: Carcinoembryonic Antigen 2.8 ng/mL (Less than 5.0)
[2018-05-14] MEDS: Insulin LISPRO 300 UNITS/3 ML VIAL SQ SCH ×3 (08:45→16:39)
[2018-05-14] MEDS: *HR* Methadone 10 MG TABLET PO SCH ×2 (08:56→21:25)
--- NOTE | 2018-05-14 09:24 | Internal Med Progress Note ---
<Tanesha Anderson - Last Filed: 05/14/18 13:01> Hospitalist Progress Note - Encounter Date of Encounter: 05/14/18 - Exam Vitals: Temp Pulse Resp BP Pulse Ox 98.3 F 76 16 166/112 93 05/14/18 12:47 05/14/18 12:47 05/14/18 12:47 05/14/18 12:47 05/14/18 12:47 - Assessment and Plan (1) Intractable nausea and vomiting Current Visit: Yes Status: Acute (2) Diabetic ketosis Current Visit: Yes Status: Acute (3) Dehydration Current Visit: Yes Status: Acute (4) Abdominal pain Current Visit: Yes Status: Acute (5) HTN (hypertension) Current Visit: Yes Status: Acute (6) HLD (hyperlipidemia) Current Visit: Yes Status: Acute (7) Diabetes Current Visit: Yes Status: Acute - Time Spent with Patient Total time spent is greater than 50% in coordination of care (as documented) at patient's floor/unit and/or counseling patient: Internal Medicine: Result - Labs CBC & Chem 7: 05/14/18 06:01 05/14/18 05:20 Labs: Short CBC 05/14/18 Range/Units 06:01 WBC 8.1 (4.3-11.1) K/mcL Hgb 14.3 (12.9-16.9) g/dL Hct 40.1 (37.5-50.1) % Plt Count 191 (140-400) K/mcL BMP 05/14/18 05:20 Sodium 139 Potassium 3.5 Chloride 103 Carbon Dioxide 26 BUN 8 Creatinine 0.73 Glucose 211 H Calcium 8.9 - ABG Interpretation ABG results: PT/INR, D-dimer PT 12.9 Seconds (9.4-12.1) H 05/14/18 06:01 - Impressions Impressions Chest CT 05/13/18 12:30 IMPRESSION: 1. The lesion inferior posterior mediastinum described yesterday as adjacent to the right pulmonary vein is a benign pericardial cyst requiring no additional evaluation or follow-up. 2. Remainder of the CT chest is unremarkable. D/ / Ramiro Almanza / Ramiro Almanza Interpreting Provider: Ramiro Almanza Consult Discharge Plan - Plan Referrals: Aneta Russell MD [Primary Care Provider] - - Attending Attestation The history, physical exam, and medical decision making was performed by medical student Isak either while I was physically present and actively involved or I personally re-performed the exam and medical decision making. I have verified the accuracy of the medical student's documentation with regards to the history, physical exam findings, and medical decision making. Mr De Los Santos is being observed for intractable nausea and emesis after EGD at another facility awake, + nausea but no emesis. sore abdomen throughout. no fevers or chills. a waiting cscope gen- alert, awake,appears stated age, obese eyes- pupils equal round cv- reg rate and rhythm, normal s1,s2, no murmurs appreciated, no le edema lungs- ctabl, no wheezing, rhonchi or crackles, normal resp effort on room air abd- soft, diffusely tender,no guarding, NOT rigid, non distended, + bs neuro- AAOx3 Intractable n/v, improved- prn anti emetics, ADAT post scope, cont to monitor HTN- he believes he takes lisinipril at home, however this was not confirmed by pharmacy, cont prn IV hydralazine given he cannot take PO currently, cont to monitor, will require outpt fu with PCP, initiate bp med post scope today DM with Hyperglycemia,- cont SSI and accu checks, takes victoza and 20 units lantus hs at home,cont to adjust levemir pending oral intake Incidental CT a/p Finding of left mesenteric 2.5cm mass and multiple left mesentery and retroperitoneal LAD- oncology consulted and surgery to preform cscope today, further work up pending results -personally reviewed CT chest and prior cyst vs node is cyst inferior to right pulm vein <Gianfranco Parisi - Last Filed: 05/14/18 14:54> Hospitalist Progress Note - Encounter Date of Encounter: 05/14/18 Time of Encounter: 09:19 - Subjective Interval History: Upon entering the room Mr. De Los Santos is lying in bed. He appears anxious about the findings of his recent imaging. He admits a watery bowel movement this morning following his bowel prep for colonoscopy scheduled at 11am. He denies chills, fever, myalgias, arthralgias, rhinnorhea. He admits increased thirst. He states he feels better today and the nausea has improved. He admits diffuse abdominal pain." - Exam Vitals: Temp Pulse Resp BP Pulse Ox 98.3 F 81 16 142/91 95 05/14/18 08:43 05/14/18 08:43 05/14/18 08:43 05/14/18 08:43 05/14/18 08:43 Exam: General: Patient lying bed, anxious Skin: warm, dry, intact, no erythema Neurological: A & O x3, PERRLA, EOMI HEENT: mucous membranes moist, no conjuctival pallor, no scleral icterus Neck: supple, trachea midline, no cervical lymphadenopathy Heart: RRR, no murmurs, rubs, gallops, S1 and S2 heard, no pedal edema Lungs: CTA B/L, no rales, rhonchi, wheezing. Symmetric chest expansion with good air entry Abdomen: soft. Mild diffuse tenderness. No guarding, no rebound tenderness. Bowel sounds present. No hepatosplenomegaly Psych: Appropriate affect and eye contact - Assessment and Plan (1) Mesenteric mass Current Visit: Yes Status: Acute Assessment and Plan: -CT of abdomen and pelvis notes 2.5 cm soft tissue mass in the left mesentery along with multiple mildly enlarged lymph nodes in the left mesentery and retroperitoneum. -LDH 150, CEA 2.8 -Surgery following, appreciate recommendations -Colonoscopy scheduled for 11am 05/14/18 -Continued symptom management of nausea and vomiting (2) Diabetes Current Visit: Yes Status: Acute Assessment and Plan: Chronic uncontrolled DM A1c 10.0% 10/22, 8.9% 05/13/18 -Continue steady state insulin -Accuchecks q4 -Continue IV fluid hydration -No DKA supported by anion gap of 9.0 -Urine positive for ketones -pH 7.38 (3) Dehydration Current Visit: Yes Status: Acute Assessment and Plan: Continue IVF (4) HTN (hypertension) Current Visit: Yes Status: Acute Assessment and Plan: -Chronic HTN, continue home meds -IV Hydralazine PRN -Patients BP 180/100 at 7:11 05/14/18. BP decreased to 142/91 by 8:43 with no hydralazine given -1 time IVP 5mg Metoprolol due to BP being elevated - Time Spent with Patient Total time spent is greater than 50% in coordination of care (as documented) at patient's floor/unit and/or counseling patient: Internal Medicine: Result - Labs CBC & Chem 7: 05/14/18 06:01 05/14/18 05:20 Labs: Short CBC 05/14/18 Range/Units 06:01 WBC 8.1 (4.3-11.1) K/mcL Hgb 14.3 (12.9-16.9) g/dL Hct 40.1 (37.5-50.1) % Plt Count 191 (140-400) K/mcL BMP 05/14/18 05:20 Sodium 139 Potassium 3.5 Chloride 103 Carbon Dioxide 26 BUN 8 Creatinine 0.73 Glucose 211 H Calcium 8.9 - ABG Interpretation ABG results: PT/INR, D-dimer PT 12.9 Seconds (9.4-12.1) H 05/14/18 06:01 - Impressions Impressions Chest CT 05/13/18 12:30 IMPRESSION: 1. The lesion inferior posterior mediastinum described yesterday as adjacent to the right pulmonary vein is a benign pericardial cyst requiring no additional evaluation or follow-up. 2. Remainder of the CT chest is unremarkable. D/ / Ramiro Almanza / Ramiro Almanza Interpreting Provider: Ramiro Almanza <Tanesha Anderson - Last Filed: 05/14/18 13:01> (1) Intractable nausea and vomiting Qualifiers: Vomiting type: unspecified Qualified Code(s): R11.2 - Nausea with vomiting, unspecified (4) Abdominal pain Qualifiers: Abdominal location: generalized Qualified Code(s): R10.84 - Generalized abdominal pain (5) HTN (hypertension) Qualifiers: Hypertension type: essential hypertension Qualified Code(s): I10 - Essential (primary) hypertension (6) HLD (hyperlipidemia) Qualifiers: Hyperlipidemia type: unspecified Qualified Code(s): E78.5 - Hyperlipidemia, unspecified (7) Diabetes Qualifiers: Diabetes mellitus type: type 2 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 Diabetes mellitus complication status: with neurologic complications Diabetes mellitus complication detail: with m ononeuropathy Qualified Code(s): E11.41 - 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
[2018-05-14] MEDS ORDERED: Simethicone 40 MG/0.6 ML MLS IR ONE (10:03)
[2018-05-14] MEDS ORDERED: *HR* FentaNYL (PF) 100 MCG/2 ML VIAL ONE (10:19)
[2018-05-14] MEDS ORDERED: *HR* Metoprolol 5 MG/5 ML VIAL IVP ONE (11:20)
[2018-05-14] MEDS: *HR* Midazolam HCl 5 MG/5 ML VIAL IVP ONE ×2 (11:57→12:00)
[2018-05-14] MEDS ORDERED: 0.9 % Sodium Chloride 500 ML IVC SCH (12:00)
--- NOTE | 2018-05-14 12:58 | General Surgery Progress Note ---
Date of Encounter: 05/14/18 Time of Encounter: 12:57 - Assessment and Plan (1) Nausea & vomiting Current Visit: Yes Status: Acute 52M with LGIB now s/p EGD (gastritis) and colonoscopy (negative); CT finding so enlarged lymph node vs mesenteric mass; diet as tolerated NPO at midnight; plan for diagnostic laparoscopy on 05/15 Qualifiers: Vomiting type: unspecified Vomiting Intractability: unspecified Qualified Code(s): R11.2 - Nausea with vomiting, unspecified Subjective Patient reports: no new complaints Objective Vital Signs - Last 8 Hours Temp Pulse Resp BP Pulse Ox 05/14/18 12:47 98.3 F 76 16 166/112 93 05/14/18 12:25 98.6 F 74 16 133/75 96 05/14/18 12:20 98.6 F 66 16 138/67 97 05/14/18 12:15 98.6 F 64 16 138/78 98 05/14/18 12:10 98.6 F 65 16 145/77 96 05/14/18 12:05 98.6 F 77 16 139/77 95 05/14/18 12:00 98.6 F 71 16 154/100 95 05/14/18 11:55 98.6 F 74 16 158/103 95 05/14/18 11:50 98.6 F 75 16 161/108 94 05/14/18 11:45 98.6 F 67 18 166/100 93 05/14/18 11:41 98.6 F 67 18 156/100 93 05/14/18 10:37 99.2 F 82 16 157/100 95 05/14/18 08:43 98.3 F 81 16 142/91 95 05/14/18 07:11 98.6 F 70 14 180/110 94 Intake and Output 05/13/18 05/14/18 05/14/18 23:59 07:59 15:59 Intake Total 120 / 120 400 / 400 Output Total 0 / 0 Balance 120 / 120 400 / 400 Intake: IV Fluids 400 / 400 0.9 % Sodium Chloride 500 ML @ 400 / 400 50 mls/hr IVC .Q10H TINY Rx#: [id number] Oral 120 / 120 0 / 0 Output: Urine 0 / 0 Other: Meal Dinner npo Stool Size Large Stool Consistency liquid Stool Color Yellow # Voids 1 1 Blood Glucose* 202 187 - General physical appearance no distress - Respiratory normal expansion, normal respiratory effort - Cardiovascular Cardiovascular exam: Present: RRR - Abdomen Abdomen: Present: soft, non tender - Integumentary no rash - Neurologic CN 2-12 grossly intact - Labs 05/14/18 06:01 05/14/18 05:20 Diabetes panel 05/14/18 Range/Units 05:20 Sodium 139 (136-145) mEq/L Potassium 3.5 (3.5-5.1) mEq/L Chloride 103 (98-107) mEq/L Carbon Dioxide 26 (23-29) mEq/L BUN 8 (6-20) mg/dL Creatinine 0.73 (0.70-1.30) mg/dL Glucose 211 H (70-105) mg/dL Calcium 8.9 (8.6-10.3) mg/dL Calcium panel 05/14/18 Range/Units 05:20 Calcium 8.9 (8.6-10.3) mg/dL Pituitary panel 05/14/18 Range/Units 05:20 Sodium 139 (136-145) mEq/L Potassium 3.5 (3.5-5.1) mEq/L Chloride 103 (98-107) mEq/L Carbon Dioxide 26 (23-29) mEq/L BUN 8 (6-20) mg/dL Creatinine 0.73 (0.70-1.30) mg/dL Glucose 211 H (70-105) mg/dL Calcium 8.9 (8.6-10.3) mg/dL Adrenal panel 05/14/18 Range/Units 05:20 Sodium 139 (136-145) mEq/L Potassium 3.5 (3.5-5.1) mEq/L Chloride 103 (98-107) mEq/L Carbon Dioxide 26 (23-29) mEq/L BUN 8 (6-20) mg/dL Creatinine 0.73 (0.70-1.30) mg/dL Glucose 211 H (70-105) mg/dL Calcium 8.9 (8.6-10.3) mg/dL Consult Discharge Plan - Plan Referrals: Aneta Russell MD [Primary Care Provider] -
--- NOTE | 2018-05-14 13:49 | Oncology Inp Progress Note ---
<Bianca Elaine L - Last Filed: 05/14/18 20:56> Date of Encounter: 05/14/18 Time of Encounter: 12:30 (1) Mesenteric mass Current Visit: Yes Status: Acute Assessment and plan: CT of abdomen and pelvis notes 2.5 cm soft tissue mass in the left mesentery along with multiple mildly enlarged lymph nodes in the left mesentery and retroperitoneum. CT of the chest with contrast negative for findings concerning for malignancy or metastatic disease Findings may be concerning for reactive process, underlying lymphoma, GIST, small bowel primary, among others. In addition to a number of GI symptoms (+ nausea, vomiting, early satiety, in termittent diarrhea/constipation, melena, hematochezia) persisting over the past month, he also endorses B symptoms (+ intermittent fevers/chills, drenching nightsweats and unintended weight loss) EGD revealed chronic gastritis (biopsied) Colonscopy revealed normal examination to ileocecal valve, no biopsies obtained Plan: Planning for diagnostic laparoscopy tomorrow with Dr. Hanks, further recommendations pending final pathology review Once cleared from surgical standpoint, will likely discharge then may follow up with oncology as outpatient to discuss pathology findings and next steps Oncology: Subj Interval history: Mr. De Los Santos is feeling improved today. His pain and nausea are currently under well control. He has just recently returned from his EGD/Colonoscopy, he is actually hungry and asking to eat. He continues to feel quite anxious about continued workup and diagnosis as expected. - Constitutional General appearance: cooperative, no acute distress, no febrile - Head Head exam: Present: atraumatic - ENT ENT exam: Present: mucous membranes moist, normal oropharynx - Respiratory Respiratory exam: Present: CTAB. Absent: respiratory distress - Cardiovascular Cardiovascular exam: Present: RRR, +S1, +S2 - GI/Abdominal GI/Abdominal exam: Present: normal bowel sounds, soft Additional comments: diffuse tenderness - Extremities Exam Extremities exam: Present: normal inspection. Absent: calf tenderness - Neurological Exam Neurological exam: Present: alert, oriented X3, no focal deficits, strengths equal and symetr throughout - Psychiatric Psychiatric exam: Present: anxious, normal mood - Skin Skin exam: Present: dry, intact, normal color, warm Oncology: Obj Data - Labs CBC & Chem 7: 05/14/18 06:01 05/14/18 05:20 Consult Discharge Plan - Plan Referrals: Cordial,Aneta B, MD [Primary Care Provider] - Inpatient Charges Provider: Dr. Josefa Minor <Leonidas Minor - Last Filed: 05/14/18 21:48> Date of Encounter: 05/14/18 Oncology: Obj Data - Labs CBC & Chem 7: 05/14/18 06:01 05/14/18 05:20 Inpatient Charges Provider: Dr. Josefa Minor Follow up - Inpatient: [id number] - Attending Attestation I examined this patient and my medical decision-making was reviewed with the Advanced Practice Nurse. I agree with the documented findings, disposition and treatment plan as described except to the extent set forth below. Mr. De Los Santos feels much better today. His abdominal pain is nearly resolved. He is passing stools normally. No nausea or vomiting. Exam is normal. No rebound or guarding. No residual tenderness. EGD and colonoscopy were nonrevealing. He will undergo exploratory laparoscopy tomorrow with excisional biopsy of the mesenteric mass. Further decisions pending pathology.
--- NOTE | 2018-05-14 18:59 | Anesthesia Evaluation PreOp ---
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 [employer] History: CVA (4 years ago, slight right sided weakness), TIA Other Medical History: Diabetes Type II, GERD Anesthesia History: No Prior Anesthetic Complications, Past Anesthesia (appendectomy, herniorrhaphy) Alcohol Use: none Drug use: none Medications and Allergies Gabapentin [Neurontin] 300 mg PO 6XD 05/12/18 [History] Insulin Glargine,Hum.rec.anlog [Basaglar Kwikpen U-100] 20 unit SQ DAILY 05/12/18 [History] Liraglutide [Victoza 2-Eduardo] 1.2 mg SQ DAILY 05/12/18 [History] Methadone 10 mg PO BID 05/12/18 [History] Metoclopramide HCl 5 mg PO QID 05/12/18 [History] Ondansetron HCl [Zofran] 4 mg PO Q8HR PRN 05/12/18 [History] Pantoprazole Sodium [Protonix] 40 mg PO DAILY 05/12/18 [History] Sertraline [Zoloft] 50 mg PO DAILY 05/12/18 [History] Sucralfate [Carafate] 10 ml PO QID 05/12/18 [History] Sulindac 150 mg PO BID 05/12/18 [History] Allergy/AdvReac Type Severity Reaction Status Date / Time No Known Allergies Allergy Verified 05/12/18 06:27 - Meds/Allergy Pre-op Review Medications Reviewed: Yes Allergies Reviewed: Yes Beta Blockers on Current Med List: Yes If Beta Blockers taken, Date/Time (Last Dose taken): one time dose 05/14/2018 @ 13:48 Anesthesia Results - Labs 05/14/18 06:01 05/14/18 05:20 Anesthesia Exam Vital Signs/O2 Sat, Most Current Temp Pulse Resp BP Pulse Ox 98.1 F 68 16 150/90 93 05/14/18 19:20 05/14/18 19:20 05/14/18 19:20 05/14/18 19:20 05/14/18 19:20 NPO (# of Hours): > 8 hrs Pain Scale: 0 Pain Scale Used: Numeric (1 - 10) - HEENT Pupil (Motor): Pupils equal, EOMI Mallampati: III Teeth: Poor dentition Oral Opening: Greater than 3 - SUPERVIS[employer]SWERING [employer] LOC: Oriented [employer]PER[employer] Motor: Normal RUE, Normal LUE, Normal RLE, Normal LLE, Normal Face [employer]PER[employer] Sensory: Normal: RUE, LUE, RLE, LLE, Face - Cardiac Rhythm: Regular Murmur: None JVD: No Carotid Bruit: No - Pulmonary Breath Sounds: bilateral Clear Respiratory Effort: Symmetrical Anesthesia Assess/Plan ASA Score: 3 Level of consciousness: Cooperative Anesthetic Plan: General Autologous Blood: Yes Monitoring Plan: Standard Monitors Recovery Plan: PACU
[2018-05-14] MEDS: Insulin DETEMIR 100 UNIT/ML X5UNITS SQ SCH (21:25)
[2018-05-15] MEDS ORDERED: D5% in 0.45% NACL w KCl 20 MEQ/1,000 ML MLS IVC SCH
[2018-05-15] MEDS: Gabapentin 300 MG CAPSULE PO SCH ×4 (00:22→11:19)
[2018-05-15 07:26] VITALS: BP 148/98
--- NOTE | 2018-05-15 07:47 | General Surgery Progress Note ---
Date of Encounter: 05/15/18 Time of Encounter: 07:44 - Assessment and Plan (1) Nausea & vomiting Current Visit: Yes Status: Acute 52M with LGIB now s/p EGD (gastritis) and colonoscopy (negative); CT finding so enlarged lymph node vs mesenteric mass; patient reports feeling better, tolerating a diet without nausea or vomiting; discussed with patient about the risks and benefits of surgery for a small finding that may or may not be malignancy. In my opinion, the risks of surgery outweigh waiting to see if the mass resolves with time. My thought is that now with his nausea resolved and him tolerating a diet, that maybe he had a moderate gastroenteritis that is now resolving. diet as tolerated follow up with Dr. RODRIGUEZ in two plan for repeat at that time and make final decision at that point; discussed with patient who is in agreement okay to dc per primary general surgery will sign off; thank you for the consultation. please call with any new questions or concerns Qualifiers: Vomiting type: unspecified Vomiting Intractability: unspecified Qualified Code(s): R11.2 - Nausea with vomiting, unspecified Subjective Patient reports: no new complaints, feels better, tolerating a regular diet, flatus, bowel movement, afebrile Objective Vital Signs - Last 8 Hours Temp Pulse Resp BP Pulse Ox 05/15/18 07:22 98.6 F 66 15 148/98 95 05/15/18 04:21 98.3 F 71 18 155/95 94 Intake and Output 05/14/18 05/14/18 05/15/18 15:59 23:59 07:59 Intake Total 400 / 400 1220 / 1220 0 / 0 Balance 400 / 400 1220 / 1220 0 / 0 Intake: IV Fluids 400 / 400 1100 / 1100 0.9 % Sodium Chloride 500 ML @ 400 / 400 100 / 100 50 mls/hr IVC .Q10H TINY Rx#: [id number] Oral 0 / 0 120 / 120 0 / 0 Other: Meal npo Dinner Percent of Meal Consumed 100% Stool Size Large Stool Consistency liquid Stool Color Yellow # Voids 1 1 2 Weight 114.3 kg Blood Glucose* 187 171 185 Patient Weight 05/15/18 23:59 Weight 114.3 kg - General physical appearance no distress - Respiratory normal expansion, normal respiratory effort - Cardiovascular Cardiovascular exam: Present: RRR - Abdomen Abdomen: Present: soft, non tender - Integumentary no abnormal pigmentation - Neurologic CN 2-12 grossly intact - Labs 05/14/18 06:01 05/14/18 05:20 Consult Discharge Plan - Plan Referrals: Aneta Russell MD [Primary Care Provider] -
[2018-05-15] MEDS: *HR* Methadone 10 MG TABLET PO SCH (08:58)
[2018-05-15] MEDS: Insulin LISPRO 300 UNITS/3 ML VIAL SQ SCH (08:59)
--- NOTE | 2018-05-15 09:26 | Oncology Inp Progress Note ---
Date of Encounter: 05/15/18 Time of Encounter: 10:30 (1) Mesenteric mass Status: Acute Assessment and plan: CT of abdomen and pelvis notes 2.5 cm soft tissue mass in the left mesentery along with multiple mildly enlarged lymph nodes in the left mesentery and retroperitoneum. CT of the chest with contrast negative for findings concerning for malignancy or metastatic disease Findings may be concerning for reactive process, underlying lymphoma, GIST, small bowel primary, among others. In addition to a number of GI symptoms (+ nausea, vomiting, early satiety, intermittent diarrhea/constipation, melena, hematochezia) persisting over the past month, he also endorses B symptoms (+ intermittent fevers/chills, drenching night sweats and unintended weight loss) EGD revealed chronic gastritis (biopsied) Colonoscopy revealed normal examination to ileocecal valve, no biopsies obtained Plan: He was planned for diagnostic laparoscopy today with Dr. Hanks, this was cancelled today, it is felt that risks of surgical intervention may outweigh the benefits at this time, recommend follow up CT imaging I did discuss case with Dr. You in IR, he felt as though his soft tissue mass may be amendable to percutaneous biopsy dependant upon positioning of patients bowels the day of procedure, but would be appropriate referral for consultation by IR, this may be option as well Given the improvement of his GI symptoms otherwise, he is planned for discharge home now, he is anxious to return home We will arrange for follow up with Dr. Minor for discussion for biopsy vs. short term CT imaging He is to call sooner with any questions or concerns, follow up has been arranged Oncology: Subj Interval history: Patient evaluated at bedside, he is dressed, sitting in chair and planned for discharge home soon. Appetite improved, he is hungry since being NPO. He has eaten breakfast since his surgery was cancelled this morning. He is feeling much improved from admission. He denies fever, chills, nausea, vomiting, diarrhea, c onstipation, chest pain or SOB. - Constitutional General appearance: cooperative, no acute distress, no febrile - Head Head exam: Present: atraumatic - ENT ENT exam: Present: mucous membranes moist, normal oropharynx - Respiratory Respiratory exam: Present: CTAB. Absent: respiratory distress - Cardiovascular Cardiovascular exam: Present: RRR, +S1, +S2 - GI/Abdominal GI/Abdominal exam: Present: normal bowel sounds, soft. Absent: guarding, rebound, tenderness - Extremities Exam Extremities exam: Present: normal inspection. Absent: calf tenderness - Neurological Exam Neurological exam: Present: alert, oriented X3, no focal deficits, strengths equal and symetr throughout - Psychiatric Psychiatric exam: Present: anxious - Skin Skin exam: Present: dry, intact, normal color, warm Oncology: Obj Data - Labs CBC & Chem 7: 05/14/18 06:01 05/14/18 05:20 Consult Discharge Plan - Plan Instructions: Gastritis (DC) Referrals: Jhony Austin MD [Non-Partnered Physician] - (2 weeks) Aneta Russell MD [Primary Care Provider] - Leonidas Minor MD [Partnered Physician] - (already scheduled) Prescriptions: Lisinopril [Zestril] 20 mg PO DAILY #30 tablet Inpatient Charges Provider: Bianca Elaine CNP Follow up - Inpatient: [id number]
[2018-05-15] MEDS ORDERED: Lisinopril 20 MG TABLET PO SCH (09:30)
--- NOTE | 2018-05-15 10:45 | Discharge Summary ---
<Tanesha Anderson - Last Filed: 05/15/18 13:00> Orders not resulted at time of discharge: Pending orders 05/14/18 12:30 Surgical Pathology [PTH] Routine Date of Encounter: 05/15/18 - Discharge Diagnosis (1) Intractable nausea and vomiting Status: Resolved Qualifiers: Vomiting type: unspecified Qualified Code(s): R11.2 - Nausea with vomiting, unspecified (2) Diabetic ketosis Status: Resolved (3) Dehydration Status: Acute (4) HTN (hypertension) Status: Chronic Qualifiers: Hypertension type: essential hypertension Qualified Code(s): I10 - Essential (primary) hypertension (5) HLD (hyperlipidemia) Status: Chronic Qualifiers: Hyperlipidemia type: unspecified Qualified Code(s): E78.5 - Hyperlipidemia, unspecified (6) Diabetes Status: Chronic Qualifiers: Diabetes mellitus type: type 2 Diabetes mellitus alf insulin use: unspecified long winder tender insulin use status Diabetes mellitus complication status: with neurologic complications Diabetes mellitus complication detail: with mononeuropathy Qualified Code(s): E11.41 - Type 2 diabetes mellitus with diabetic mononeuropathy (7) Mesenteric mass Status: Acute Hospital course: Mr. De Los Santos is a 52 year old male - Time Spent with Patient Total time spent providing and/or coordinating discharge services: Less than 30 minutes (25 min) - Discharge Medications Prescriptions: Lisinopril [Zestril] 20 mg PO DAILY #30 tablet Home Medications: Gabapentin [Neurontin] 300 mg PO 6XD 05/12/18 [History] Insulin Glargine,Hum.rec.anlog [Basaglar Kwikpen U-100] 20 unit SQ DAILY 05/12/18 [History] Liraglutide [Victoza 2-Eduardo] 1.2 mg SQ DAILY 05/12/18 [History] Methadone 10 mg PO BID 05/12/18 [History] Metoclopramide HCl 5 mg PO QID 05/12/18 [History] Ondansetron HCl [Zofran] 4 mg PO Q8HR PRN 05/12/18 [History] Pantoprazole Sodium [Protonix] 40 mg PO DAILY 05/12/18 [History] Sertraline [Zoloft] 50 mg PO DAILY 05/12/18 [History] Sucralfate [Carafate] 10 ml PO QID 05/12/18 [History] Sulindac 150 mg PO BID 05/12/18 [History] Lisinopril [Zestril] 20 mg PO DAILY #30 tablet 05/15/18 [Rx] Allergies/Adverse Reactions: Allergy/AdvReac Type Severity Reaction Status Date / Time No Known Allergies Allergy Verified 05/12/18 06:27 Date of admission: 05/12/18 13:50 Primary care physician: Aneta Russell MD Consults: 05/12/18 15:12 Consult to Nutrition [CONS] Routine Comment: Consulting Provider: NUTRITION Reason for Dietary Consult: MST Score 05/13/18 11:40 Consult to Oncology Hematology [CONS] Routine Consulting Provider: Bianca Elaine Reason for Consult: mesenteric soft tissue mass and right pulm vein lesion Call Completed: Yes 05/13/18 15:47 Consult to Surgery [CONS] Routine Consulting Provider: Jhony Austin Reason for Consult: mesenteric mass, melena, hematochezia Call Completed: Yes - Constitutional Vitals: Temp Pulse Resp BP Pulse Ox 98.6 F 66 15 148/98 95 05/15/18 07:22 05/15/18 07:22 05/15/18 07:22 05/15/18 07:22 05/15/18 07:22 - Patient Status Disposition: Home, Self-Care Condition: Good - Discharge Instructions Instructions: Gastritis (DC) Follow Up With: Aneta Russell MD [Primary Care Provider] - Jhony Austin MD [Non-Partnered Physician] - (2 weeks) Leonidas Minor MD [Partnered Physician] - (already scheduled) Forms: ED Satisfaction Letter - Attending Attestation I examined this patient and my medical decision-making was reviewed with the Resident Physician Dr Villeda. I agree with the documented findings, disposition and treatment plan as described except to the extent set forth below. Mr De Los Santos was being observed for intractable nausea and emesis thought to be secondary to gastroenteritis. CT imaging on admit revealed incidental LAD and soft tissue mesenteric mass for which work up was initiated inpt and will be completed outpt He is being dc to home with surgery and oncology followup, tolerating regular diet with resolution of GI sxs. awake, pleasant, feeling back to baseline. tolerated regular diet yesterday and today without n/v/abd pain. He is eager for dc to home. disucssed dc plan and answered all questions. gen- alert, awake,appears stated age, obese, well appearing cv- reg rate and rhythm, normal s1,s2, no murmurs appreciated lungs- ctabl, no wheezing, rhonchi or crackles, normal resp effort on room air abd- soft, non tender, no guarding, non distended, + bs neuro- AAOx3 Intractable n/v, resolved, suspect likely 2/2 gastroenteritis HTN- confirmed with his outpt pharmacy lisinopril dose daily, to cont on discharge, fu with pcp outpt for further management DM with Hyperglycemia, improved with SSI while pt was npo and diet andvancing- resume home vicotoza and long acting insulin on dc as now tolerating regular diet, fu with pcp Incidental CT a/p Finding of left mesenteric 2.5cm mass and multiple left mesentery and retroperitoneal LAD- oncology consulted and surgery consulted and preformed cscope which was normal and egd with chronic gastritis that was biopsied -surgery will see as outpt in 2 weeks, fu path with surg and will determine at that time further investigation plan of mass, no need for inpt laproscopic exploration at this time per surgery -oncology will also see as outpt in 2 weeks and help determine outpt plan re mass as well further diagnoses and plan as noted by resident dc to home time spent on dc 25 min <Jorden Villeda - Last Filed: 05/15/18 13:39> - NOTES TO OUTPATIENT PROVIDER Notes to Outpatient Provider: Schedule follow up appointments with General surgeon Dr. Austin and Hem/Onc in 1-2 weeks. EGD revealed chronic gastritis that was biopsied, patholgy results are pending. Orders not resulted at time of discharge: Pending orders 05/14/18 12:30 Surgical Pathology [PTH] Routine 05/14/18 12:31 H. pylori Urease Culture [RM] Stat Date of Encounter: 05/15/18 Time of Encounter: 09:30 - Discharge Diagnosis (1) Mesenteric mass Priority: Primary Status: Acute (2) Intractable nausea and vomiting Priority: Secondary Status: Resolved Qualifiers: Vomiting type: unspecified Qualified Code(s): R11.2 - Nausea with vomiting, unspecified (3) Dehydration Priority: Secondary Status: Acute (4) Diabetic ketosis Priority: Secondary Status: Resolved (5) Diabetes Priority: Secondary Status: Chronic Qualifiers: Diabetes mellitus type: type 2 Diabetes mellitus long winder tender insulin use: unspecified long winder tender insulin use status Diabetes mellitus complication status: with neurologic complications Diabetes mellitus complication detail: with mononeuropathy Qualified Code(s): E11.41 - Type 2 diabetes mellitus with diabetic mononeuropathy (6) HTN (hypertension) Priority: Secondary Status: Chronic Assessment and Plan: Blood pressure elevated. Follow up with PCP to adjust antihypertensive therapy as needed. Qualifiers: Hypertension type: essential hypertension Qualified Code(s): I10 - Essential (primary) hypertension (7) HLD (hyperlipidemia) Priority: Secondary Status: Chronic Qualifiers: Hyperlipidemia type: unspecified Qualified Code(s): E78.5 - Hyperlipidemia, unspecified Hospital course: Mr. De Los Santos is a 52 year old male with a PMH of HTN, DM, and obesity who presented with intractable nausea and emesis thought to be secondary to gastroenteritis. CT imaging revealed incidental left mesenteric 2.5cm mass and multiple left mesentery and retroperitoneal LAD. Oncology and surgery were consulted. Oncology recommended laproscopic exploration for a definitive diagnosis. General surgery preformed a colonoscopy which was normal and egd revealed chronic gastritis that was biopsied. Results are pending. General surgeon discussed the risks and benefits of surgery with the patient about the imaging findings that may or may not be malignancy. Surgeon recommended no need for inpt laproscopic exploration at this time per surgery as the risks of surgery outweigh waiting to see if the mass resolves with time. General surgery will see him as an outpatient in 2 weeks, follow up on the pathology results, and will determine at that time the further investigation plan of the mass. Oncology will also see him as an outpatient in 2 weeks and help determine the plan regarding the mass. He was discharged to home with surgery and oncology follow up after tolerating regular diet with resolution of GI sxs. Blood pressure elevated. Follow up with PCP to adjust antihypertensive therapy as needed. - Time Spent with Patient Total time spent providing and/or coordinating discharge services: Date of admission: 05/12/18 13:50 Primary care physician: Aneta Russell MD Consults: 05/12/18 15:12 Consult to Nutrition [CONS] Routine Comment: Consulting Provider: NUTRITION Reason for Dietary Consult: MST Score 05/13/18 11:40 Consult to Oncology Hematology [CONS] Routine Consulting Provider: Bianca Elaine Reason for Consult: mesenteric soft tissue mass and right pulm vein lesion Call Completed: Yes 05/13/18 15:47 Consult to Surgery [CONS] Routine Consulting Provider: Jhony Austin Reason for Consult: mesenteric mass, melena, hematochezia Call Completed: Yes Discharging clinician: Jorden Villeda Anticipated date of discharge: 05/15/18 - Constitutional Vitals: Temp Pulse Resp BP Pulse Ox 98.6 F 66 15 148/98 95 05/15/18 07:22 05/15/18 07:22 05/15/18 07:22 05/15/18 07:22 05/15/18 07:22 General appearance: Present: cooperative, A&O X 3, pleasant, no acute distress, obese, answers questions appropriately Exam: awake - Head Head exam: Present: atraumatic, normocephalic - Eye Eye exam: Present: EOMI, conjuntiva pink, sclera anicteric - ENT ENT exam: Present: mucous membranes moist, normal oropharynx - Neck Neck exam general surgery: Present: supple, trachea midline. Absent: lymphadenopathy - Respiratory Respiratory exam: Present: CTAB. Absent: accessory muscle use, rales, rhonchi, wheezes - Cardiovascular Cardiovascular exam: Present: RRR, +S1, +S2. Absent: diastolic murmur, gallop, rubs, systolic murmur - GI/Abdominal GI/Abdominal exam: Present: normal bowel sounds, soft, no peritoneal signs. Absent: distended, tenderness - Extremities Exam Extremities exam: Present: warm, radial pulses palpable and symmetrical. Absent: calf tenderness, cyanotic, pedal edema - Back Exam Back exam: Present: normal inspection. Absent: paraspinal tenderness, tenderness - Neurological Exam Neurological exam: Present: CN II-XII intact, oriented X3, no focal deficits. Absent: facial droop, speech deficit - Psychiatric Psychiatric exam: Present: normal affect, normal mood - Skin Skin exam: Present: dry, intact, normal color, warm - Patient Status Functional capacity at discharge: independent ambulation Overall status at discharge: patient is back to baseline - Diet and Activity Activity: increase activity as tolerated, resume usual activities as tolerated Diet: diabetic diet
== END 2018-05-15 11:26 | disposition home or self-care (01) ==
LOC: 3ANU 06:22 → EMEROOARM 06:22 → SUATTDRO 13:50 → 3ANU 14:37
PROVIDERS: ADMIT Student in an Organized Health Care Education/Training Program; ATTEND Internal Medicine
PROC: ENDOEBX (2018-05-14 10:30)

== ENCOUNTER 2018-06-22 11:22 | Inpatient (IN) ==
[2018-06-22] MEDS ORDERED: Famotidine 20 MG/2 ML VIAL IVP ONE (11:37)
[2018-06-22] MEDS ORDERED: Acetaminophen IV 1,000 MG/100 ML INFUS..BTL IVPB ONE (11:37)
[2018-06-22] MEDS ORDERED: CeFAZolin Syr 2,000MG/20 ML 2,000 MG/20 ML SYRINGE IVPB ONE (11:52)
[2018-06-22] MEDS: Ringers Solution, Lactated 1,000 ML IVC SCH ×3 (12:21→20:00)
[2018-06-22] MEDS ORDERED: Dexamethasone 4 MG/ML VIAL ONE (12:29)
[2018-06-22] MEDS ORDERED: *HR* Succinylcholine 200 MG/10 ML VIAL IVP ONE (12:29)
[2018-06-22] MEDS ORDERED: *HR* FentaNYL (PF) 100 MCG/2 ML VIAL ONE (12:29)
[2018-06-22] MEDS ORDERED: *HR* Midazolam HCl 2 MG/2 ML VIAL ONE (12:29)
[2018-06-22] MEDS ORDERED: *HR* Rocuronium Bromide 50 MG/5 ML VIAL ONE (12:29)
[2018-06-22] MEDS ORDERED: *HR* Propofol 200 MG/20 ML VIAL IVP ONE (12:29)
[2018-06-22] MEDS ORDERED: Lidocaine -MPF 2% 2 ML VIAL ONE (12:29)
[2018-06-22] MEDS ORDERED: Ondansetron 4 MG/2 ML VIAL ONE (12:29)
--- NOTE | 2018-06-22 12:29 | Anesthesia Evaluation PreOp ---
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 Other Medical History: Diabetes Type II, Other (Obese) Anesthesia History: No Prior Anesthetic Complications Alcohol Use: none Drug use: none Medications and Allergies Gabapentin [Neurontin] 300 mg PO 6XD 05/12/18 [History] Insulin Glargine,Hum.rec.anlog [Basaglar Kwikpen U-100] 20 unit SQ DAILY 05/12/18 [History] Liraglutide [Victoza 2-Eduardo] 1.2 mg SQ DAILY 05/12/18 [History] Methadone 10 mg PO BID 05/12/18 [History] Metoclopramide HCl 5 mg PO QID 05/12/18 [History] Ondansetron HCl [Zofran] 4 mg PO Q8HR PRN 05/12/18 [History] Pantoprazole Sodium [Protonix] 40 mg PO DAILY 05/12/18 [History] Sertraline [Zoloft] 50 mg PO DAILY 05/12/18 [History] Sucralfate [Carafate] 10 ml PO QID 05/12/18 [History] Lisinopril [Zestril] 20 mg PO DAILY #30 tablet 05/15/18 [Rx] Allergy/AdvReac Type Severity Reaction Status Date / Time No Known Allergies Allergy Verified 05/28/18 10:16 - Meds/Allergy Pre-op Review Medications Reviewed: Yes Allergies Reviewed: Yes Beta Blockers on Current Med List: No Anesthesia Results - Labs Laboratory Tests 06/16/18 06/16/18 10:38 10:38 Hgb 14.0 Hct 40.6 Plt Count 175 Sodium 136 Potassium 4.5 BUN 13 Creatinine 0.75 - Imaging EKG: report reviewed (SR) Anesthesia Exam O2 Sat Height 1.83 m Height 1.83 m Weight 113.398 kg Weight 113.398 kg O2 Sat by Pulse Oximetry 98 Vital Signs Temp Pulse Resp BP Pulse Ox 97.8 F 87 18 137/88 98 06/22/18 11:43 06/22/18 11:43 06/22/18 11:43 06/22/18 11:43 06/22/18 11:43 Height: 6'0 Weight: 250 lbs NPO (# of Hours): MN Pain Scale: 0 - HEENT Pupil (Motor): Pupils equal, EOMI Mallampati: III Teeth: Missing Oral Opening: Less than or equal to 3 - READING COACH LOC: Oriented READING COACH Motor: Normal RUE, Normal LUE, Normal RLE, Normal LLE, Normal Face READING COACH Sensory: Normal: RUE, LUE, RLE, LLE, Face - Cardiac Rhythm: Regular Murmur: None JVD: No Carotid Bruit: No - Pulmonary Breath Sounds: bilateral Clear Respiratory Effort: Symmetrical Anesthesia Assess/Plan ASA Score: 3 (HTN SILVIA DM Obese) Level of consciousness: Cooperative, Oriented Anesthetic Plan: General, Epidural Autologous Blood: No Monitoring Plan: Standard Monitors Recovery Plan: PACU (Discussed GA, possible Epidural for post op pain relief, risks and benefits, agrees to proceed)
[2018-06-22] MEDS ORDERED: Ondansetron 4 MG/2 ML VIAL IVP ONE (12:31)
[2018-06-22] MEDS ORDERED: *HR* Promethazine 25 MG/ML VIAL IVP PRN (12:31)
[2018-06-22] MEDS ORDERED: *HR* HYDROmorphone (PF) 1 MG/ML SYRINGE IVP PRN (12:31)
[2018-06-22] MEDS ORDERED: Neostigmine Methylsulfate 3 MG/3 ML SYRINGE ONE (12:34)
[2018-06-22] MEDS ORDERED: EPHEDrine 50 MG/ML VIAL ONE (12:35)
[2018-06-22] MEDS ORDERED: *HR* PHENYLEPHRINE 1,000 MCG/10 ML SYRINGE IVP ONE (12:36)
--- NOTE | 2018-06-22 12:52 | History & Physical Report ---
Date of Encounter: 06/22/18 Time of Encounter: 12:51 24 Hour HP Update - Instructions Instructions: If the History and Physical is less than 30 days old and was completed prior to A.M. admission and or procedure and has NOT been updated on calendar day of procedure please complete this update prior to performing procedure. - Update Patient reports changes in Medical Condition: No Changes in examination, assessment, or condition: No Changes in Medication: No Preop tests/diagnostics Reviewed: Yes Surgery Remains Indicated: Yes Consent for Planned Operative Procedure(s) Verified: Yes - Pre-Operative Checklist Preoperative Checklist Indicated: Yes Prophylactic Antibiotic Ordered: Yes Home Medications Include Beta Temitope: No Beta Temitope Taken Today (Day of Surgery): No Beta Temitope Taken Yesterday (Day Prior to Surgery): No Is VTE Prophylaxis Indicated?: Yes - Attending Attestation patient seen and examined. no changes in patient health since last evaluation; okay to proceed with surgery.
[2018-06-22] MEDS ORDERED: Lidocaine/EPI 1:200k 1% PF 10 ML VIAL ONE (13:06)
[2018-06-22] MEDS ORDERED: Lidocaine -MPF 1% 5 ML AMPUL ONE ×3 (13:06→13:41)
[2018-06-22] MEDS ORDERED: Lidocaine/EPI 1:100k 2% 20 ML VIAL ONE (13:07)
[2018-06-22] MEDS ORDERED: ROPIVACAINE/PF/NS SYRINGE INTRAART ONE (13:07)
--- NOTE | 2018-06-22 14:06 | Anesthesia Procedures ---
Date of Encounter: 06/22/18 Time of Encounter: 12:30 Procedures: Anesthesia - Epidural/Spinal Patient ID/Chart reviewed: Yes Patient examined: Yes Consent Obtained: Yes Supplemental Oxygen: Nasal Cannula Supplemental Oxygen Rate (L/min): 2 Sedation: Versed (mg): 2 Sedation: Fentanyl (mcg): 100 Site Prep: Aseptic Technique, Sterile prep and drape Patient position: upright Local Anesthetic: Lidocaine 1% Amount of Local Anesthetic used: 5 Touhy Needle Gauge: 19 Touhy Needle Depth (cm): 5 Catheter Depth at Skin (cm): 17 Test Dose Result: Negative Infusion Rate (mls/hr): 8 Interspace Used: L3-L4 Loss of Resistance (LISET): Yes Blood: No CSF: Yes Paresthesia: No Vitals + FHT's: Vital Signs/O2 Sat/Glucose, Most Current Temp Pulse Resp BP Pulse Ox 06/22/18 13:51 90 16 140/91 99 06/22/18 13:40 90 16 143/102 99 06/22/18 13:25 83 16 142/93 98 06/22/18 13:11 83 16 133/88 99 06/22/18 11:43 97.8 F 87 18 137/88 98
[2018-06-22] MEDS ORDERED: ROPIVACAINE EP SCH ×2 (14:15→17:03)
[2018-06-22] MEDS ORDERED: Bupivacaine-MPF 0.25% 10 ML VIAL ONE (14:31)
--- NOTE | 2018-06-22 16:10 | Operative Note ---
Date of procedure: 06/22/18 Pre-op diagnosis: mesenteric mass Post-op diagnosis: other (enlarged mesenteric lymph nodes) Procedure: exploratory laparotomy excision of mesenteric lymph nodes Implants: none Complications: none Anesthesia: GETA, epidural Local Anesthetics: 0.5% Sensorcaine HCL SubQ (cc) Surgeon: Jhony Austin Was there an marketing operations assistant present: No Estimated blood loss (cc): 50 Specimen: mesenteric lymph nodes Condition: stable Disposition: PACU Procedure in Detail: Preoperatively an epidural was placed. patient was brought into the operating room suite. was placed in the supine position. Mechanical DVT prophylaxis was placed. The patient underwent smooth induction of anesthesia. Preoperative antibiotics were placed. The Patient was prepped and draped in the usual fashion. A timeout was held identifying correct patient, pathology, procedure, and physician. I created a midline incision. Dissected through the soft tissue layers until I entered into the abdomen. I placed the bookwalter self retainer to free both of my hands. I started at the transverse colon and ran the bowel proximally to the small bowel all the way to the ligaent of treitz. It should be noted that the mesentery as I progressed proximally became more and more thickened and somewhat foreshortened. I was able to appreciated several large masses which I perceived to be lymph nodes. Using the electrocautery I was able to dissect out 4 lymph nodes, the largest of which measured about 5cm in size. All bleeding was controlled with electrocautery and suture ligation. The bowel was pink and viable. I then closed the fascia with a running suture with a looped PDS and using the #1 PDS periodically in an interrupted figure of 8 fashion. I then stapled the skin closed and used the SOHAN dressing to cover the incision. The patient tolerated the procedure well and was escorted to PACU in stable condition.
[2018-06-22] MEDS ORDERED: Ondansetron ODT 4 MG TAB.RAPDIS SL PRN (17:03)
[2018-06-22] MEDS ORDERED: Naloxone 0.4 MG/ML INJ IVP PRN (17:03)
--- NOTE | 2018-06-22 17:51 | Anesthesia Evaluation Post Op ---
Date of Encounter: 06/22/18 Time of Encounter: 16:40 - Discharge PostOp Status: Transfer Patient to floor (Patient's vital signs have been reviewed. Patient is stable postoperatively and has adequately recovered from anesthesia. Patient is determined to have stable airway patency and respiratory function including respiratory rate and oxygen saturation. Patient has a stable heart rate, blood pressure and adequate hydration. Patients mental status is acceptable. Patients temperature is appropriate. Pain and nausea are adequately controlled.)
[2018-06-22] MEDS: *HR* Heparin 5,000 UNIT/ML VIAL SQ SCH (18:35)
[2018-06-22] MEDS: Gabapentin 300 MG CAPSULE PO SCH ×2 (21:29→23:41)
[2018-06-22] MEDS: Topiramate 25 MG TABLET PO SCH (21:30)
[2018-06-22] MEDS: ROPIVACAINE EP SCH (22:24)
[2018-06-23] MEDS: Gabapentin 300 MG CAPSULE PO SCH ×5 (04:13→20:17)
[2018-06-23] MEDS: Ringers Solution, Lactated 1,000 ML IVC SCH ×3 (04:16→20:17)
[2018-06-23] MEDS: *HR* Heparin 5,000 UNIT/ML VIAL SQ SCH ×2 (06:20→17:27)
[2018-06-23] MEDS ORDERED: *HR* Morphine 2 MG/ML SYRINGE IVP ONE (07:17)
[2018-06-23] MEDS: Lisinopril 20 MG TABLET PO SCH (08:16)
[2018-06-23] MEDS: Topiramate 25 MG TABLET PO SCH ×2 (08:17→20:14)
--- NOTE | 2018-06-23 08:28 | General Surgery Progress Note ---
Date of Encounter: 06/23/18 Time of Encounter: 08:24 - Assessment and Plan (1) Mesenteric mass Current Visit: Yes Status: Acute 52M POD #1 s/p exploratory laparotomy with excision of mesenteric lymph nodes; pain poorly controlled this morning; tolerating clears; good UOP pain: discussed with anesthesia; will await their recommendations; give 4mg iv morphine for acute control; IVF - cont; will decrease rate 100 activity: OOBTC diet: cont CLD; will await return of appetite before advancing AM labs; replace electrolytes as needed BP control - likely related to poorly controlled pain; will cont to monitor IS usage: 10 breaths an hr while awake resume home meds awaiting pathology results Subjective Patient reports: no new complaints, feels better, still having pain (pain was controlled until this morning), afebrile, other Objective Vital Signs - Last 8 Hours Temp Pulse Resp BP Pulse Ox 06/23/18 08:00 98.8 F 91 18 150/95 97 06/23/18 04:12 98.8 F 99 15 167/99 94 Intake and Output 06/22/18 06/23/18 06/23/18 23:59 07:59 15:59 Intake Total 1000 / 1000 511 / 511 Output Total 600 / 600 Balance 1000 / 1000 -89 / -89 Intake: IV Fluids 1000 / 1000 511 / 511 Lactated Ringers 1,000 ML @ 125 1000 / 1000 511 / 511 mls/hr IVC .Q8H TINY Rx#: [id number] Output: Urine 600 / 600 Other: # Voids 1 Blood Glucose* 264 164 - General physical appearance no distress - Respiratory normal expansion, normal respiratory effort - Cardiovascular Cardiovascular exam: Present: RRR - Abdomen Abdomen: Present: soft, tender (appropriately tender) - Incision Incision: Present: intact - Integumentary no rash - Neurologic CN 2-12 grossly intact - VTE Documentation of Mechanical Device: Intermittent pneumatic compression device Consult Discharge Plan - Plan Referrals: Jhony Austin MD [Non-Partnered Physician] - 07/06/18 11:20 am Aneta Russell MD [Primary Care Provider] -
[2018-06-23] MEDS ORDERED: ROPIVACAINE/PF/NS SYRINGE INTRAART ONE (08:34)
[2018-06-23] MEDS ORDERED: Insulin DETEMIR 100 UNIT/ML X5UNITS SQ SCH (09:00)
--- NOTE | 2018-06-23 09:11 | Anesthesia Progress Note ---
Date of Encounter: 06/23/18 Time of Encounter: 09:10 Anesthesia Note - Note Note: 06/23/18 09:08 Patient complain pain 8/10. Bolused 15 cc 0.2% Ropivacaine. Rate increased to 10 cc/hr. Epidural site clean. Will continue to follow. Vital signs stable
[2018-06-23] MEDS ORDERED: *HR* Dextrose 50 % in Water (Syg) 50 ML SYRINGE IVP PRN (09:30)
[2018-06-23] MEDS ORDERED: Dextrose Gel 15 GM/37.5 ML TUBE PO PRN ×2 (09:30)
[2018-06-23] MEDS ORDERED: D5% in Water 1,000 ML IVC PRN (09:30)
[2018-06-23 10:03] LABS: Basophils % 0.2 %; Eosinophils % 0.3 %; Hematocrit 36.4 % (37.5-50.1); Hemoglobin 12.8 g/dL (12.9-16.9); Immature Granulocytes % 0.2 % (0-4); Lymphocytes # 1.2 K/mcL (0.6-4.6); Lymphocytes % 12.4 %; Mean Corpuscular HGB Conc 35.2 g/dL (31.6-35.5); Mean Corpuscular Hemoglobin 30.1 pg (28.0-33.3); Mean Corpuscular Volume 85.6 fL (83.0-100.0); Mean Platelet Volume 11.1 fL (9.4-12.4); Monocytes # 0.7 K/mcL (0.0-1.3); Monocytes % 7.6 %; Neutrophils # 7.4 K/mcL (1.6-8.9); Platelet Count 185 K/mcL (140-400); Red Blood Count 4.25 M/mcL (4.19-5.50); Segmented Neutrophils % 79.3 %
[2018-06-23 10:38] LABS: BUN/Creatinine Ratio 14 (6-26); Blood Urea Nitrogen 10 mg/dL (6-20); Carbon Dioxide 27 mEq/L (23-29); Chloride 103 mEq/L (98-107); Glucose 177 mg/dL (70-105); Magnesium 1.8 mg/dL (1.6-2.6); Osmolality,Calculated 289 (280-300); Phosphorous 3.2 mg/dL (2.7-4.5); Sodium 138 mEq/L (136-145); eGFR For Non-African Americans > 60 (> 60)
[2018-06-23] MEDS ORDERED: *HR* HYDROmorphone (PF) 1 MG/ML SYRINGE IVP PRN (11:31)
[2018-06-23] MEDS: *HR* HYDROmorphone 20 MG/20 ML PCA IVC PRN (11:36)
[2018-06-23] MEDS: Insulin LISPRO 300 UNITS/3 ML VIAL SQ SCH ×2 (12:07→16:34)
[2018-06-23] MEDS: ROPIVACAINE EP SCH (12:26)
[2018-06-23] MEDS ORDERED: Simethicone 80 MG TAB.CHEW PO PRN (22:36)
[2018-06-24] MEDS: Gabapentin 300 MG CAPSULE PO SCH ×4 (00:09→12:54)
[2018-06-24] MEDS: Insulin LISPRO 300 UNITS/3 ML VIAL SQ SCH ×4 (00:10→16:58)
[2018-06-24] MEDS: *HR* HYDROmorphone 20 MG/20 ML PCA IVC PRN (02:39)
[2018-06-24] MEDS: Ringers Solution, Lactated 1,000 ML IVC SCH ×2 (04:23→11:36)
[2018-06-24] MEDS: *HR* Heparin 5,000 UNIT/ML VIAL SQ SCH ×2 (05:31→16:57)
--- NOTE | 2018-06-24 08:21 | Anesthesia Progress Note ---
Date of Encounter: 06/24/18 Time of Encounter: 07:00 Anesthesia Note - Note Note: 06/24/18 08:19 Patient fairly comfortable overnight...wants to start sitting up and ambulating. Patient getting good pain relif with CLERK OPERATOR. Will stop epidural and pull later in afternoon since patient recieved Heparin SQ 0530.
[2018-06-24] MEDS: Topiramate 25 MG TABLET PO SCH (09:05)
[2018-06-24] MEDS: Lisinopril 20 MG TABLET PO SCH (09:06)
--- NOTE | 2018-06-24 10:29 | General Surgery Progress Note ---
<CortneyLarry Harry - Last Filed: 06/24/18 10:26> Date of Encounter: 06/24/18 Time of Encounter: 09:00 - Assessment and Plan (1) Mesenteric mass Current Visit: Yes Status: Acute -POD 2 exlap with excision mesenteric lymph nodes -Pain improved with addition of [employer]CHNICIAN yesterday -Epidural has been stopped today with plans to pull catheter this afternoon per anesthesia given subq heparin given for DVT prophylaxis -SOHAN in place with minimal drainage not extending past margins -Bowel function not returned but having increased flatulence today -Encouraged increased ambulation and activity -Path results pending -Will continue [employer]CHNICIAN for pain control today and transition to PO pain meds tomorrow -Tolerated clear liquid diet and will advance to full liquids today and continue GI and DVT prophylaxis Subjective Narrative: POD 2 exlap with excision mesenteric lymph nodes. Feeling better today. Pain now well controlled with [employer] TECHNICIAN. Epidural was dc this morning. Has tolerated clear liquid diet without symptoms but unhappy with choices on clears. Is having flatulence but no BM yet. Denies subjective fever/chills, worsening abdominal pain, N/V. Objective Vital Signs - Last 8 Hours Temp Pulse Resp BP Pulse Ox 06/24/18 07:08 98.6 F 90 18 119/80 97 06/24/18 04:27 99.3 F 91 19 126/84 93 Intake and Output 06/23/18 06/24/18 06/24/18 23:59 07:59 15:59 Intake Total 1193 / 1193 1000 / 1000 Output Total 300 / 300 Balance 893 / 893 1000 / 1000 Intake: IV Fluids 713 / 713 1000 / 1000 Lactated Ringers 1,000 ML @ 125 713 / 713 1000 / 1000 mls/hr IVC .Q8H [facility] Rx#: [id number] Oral 480 / 480 Output: Urine 300 / 300 Other: Meal Dinner Percent of Meal Consumed 0% Weight 113.3 kg Blood Glucose* 140 141 Patient Weight 06/24/18 23:59 Weight 113.3 kg - General physical appearance well developed, well nourished, no distress - Eyes normal ocular movement - ENT normal mucosa - Neck Neck exam: trachea midline - Respiratory normal expansion, normal respiratory effort, clear to auscultation - Cardiovascular Cardiovascular exam: Present: RRR. Absent: bradycardia, tachycardia, irregular rhythm, murmurs, clicks, rubs, gallop, distant heart sounds, JVD - Abdomen Abdomen: Present: bowel sounds present, soft, distended (mild), tender (near midline surg site ). Absent: organomegaly, masses, guarding, rebound - Incision Incision: Present: draining, serosanguinous (SOHAN vac present ). Absent: red, swollen, inflamed, erythema, purulent, indurated, serous - Integumentary no rash - Neurologic CN 2-12 grossly intact, normal coordination - Psychiatric oriented to time, oriented to person, oriented to place, speech is normal - Labs 06/23/18 09:24 06/23/18 09:24 Diabetes panel 06/23/18 Range/Units 09:24 Sodium 138 (136-145) mEq/L Potassium 4.0 (3.5-5.1) mEq/L Chloride 103 (98-107) mEq/L Carbon Dioxide 27 (23-29) mEq/L BUN 10 (6-20) mg/dL Creatinine 0.71 (0.70-1.30) mg/dL Glucose 177 H (70-105) mg/dL Calcium 9.0 (8.6-10.3) mg/dL Calcium panel 06/23/18 Range/Units 09:24 Calcium 9.0 (8.6-10.3) mg/dL Phosphorus 3.2 (2.7-4.5) mg/dL Pituitary panel 06/23/18 Range/Units 09:24 Sodium 138 (136-145) mEq/L Potassium 4.0 (3.5-5.1) mEq/L Chloride 103 (98-107) mEq/L Carbon Dioxide 27 (23-29) mEq/L BUN 10 (6-20) mg/dL Creatinine 0.71 (0.70-1.30) mg/dL Glucose 177 H (70-105) mg/dL Calcium 9.0 (8.6-10.3) mg/dL Adrenal panel 06/23/18 Range/Units 09:24 Sodium 138 (136-145) mEq/L Potassium 4.0 (3.5-5.1) mEq/L Chloride 103 (98-107) mEq/L Carbon Dioxide 27 (23-29) mEq/L BUN 10 (6-20) mg/dL Creatinine 0.71 (0.70-1.30) mg/dL Glucose 177 H (70-105) mg/dL Calcium 9.0 (8.6-10.3) mg/dL - VTE Documentation of Mechanical Device: Intermittent pneumatic compression device Consult Discharge Plan - Plan Referrals: Jhony Austin MD [Non-Partnered Physician] - 07/06/18 11:20 am Aneta Russell MD [Primary Care Provider] - <Jhony Austin - Last Filed: 06/25/18 08:14> Date of Encounter: 06/25/18 - Assessment and Plan (1) Mesenteric mass Current Visit: Yes Status: Acute Objective Vital Signs - Last 8 Hours Temp Pulse Resp BP Pulse Ox 06/25/18 06:55 98.5 F 85 17 149/93 91 06/25/18 03:46 98.4 F 84 18 139/93 91 Intake and Output 06/24/18 06/25/18 06/25/18 23:59 07:59 15:59 Intake Total 480 / 480 Output Total 400 / 400 1200 / 1200 Balance 80 / 80 -1200 / -1200 Intake: Oral 480 / 480 Output: Urine 400 / 400 1200 / 1200 Other: Meal Dinner Percent of Meal Consumed 100% Stool Consistency soft # Bowel Movements 1 1 Weight 116.4 kg Blood Glucose* 166 159 Patient Weight 06/25/18 23:59 Weight 116.4 kg - Labs 06/25/18 04:56 06/25/18 04:56 Diabetes panel 06/25/18 Range/Units 04:56 Sodium 138 (136-145) mEq/L Potassium 3.6 (3.5-5.1) mEq/L Chloride 103 (98-107) mEq/L Carbon Dioxide 24 (23-29) mEq/L BUN 8 (6-20) mg/dL Creatinine 0.63 L (0.70-1.30) mg/dL Glucose 172 H (70-105) mg/dL Calcium 8.7 (8.6-10.3) mg/dL Calcium panel 06/25/18 Range/Units 04:56 Calcium 8.7 (8.6-10.3) mg/dL Phosphorus 2.9 (2.7-4.5) mg/dL Pituitary panel 06/25/18 Range/Units 04:56 Sodium 138 (136-145) mEq/L Potassium 3.6 (3.5-5.1) mEq/L Chloride 103 (98-107) mEq/L Carbon Dioxide 24 (23-29) mEq/L BUN 8 (6-20) mg/dL Creatinine 0.63 L (0.70-1.30) mg/dL Glucose 172 H (70-105) mg/dL Calcium 8.7 (8.6-10.3) mg/dL Adrenal panel 06/25/18 Range/Units 04:56 Sodium 138 (136-145) mEq/L Potassium 3.6 (3.5-5.1) mEq/L Chloride 103 (98-107) mEq/L Carbon Dioxide 24 (23-29) mEq/L BUN 8 (6-20) mg/dL Creatinine 0.63 L (0.70-1.30) mg/dL Glucose 172 H (70-105) mg/dL Calcium 8.7 (8.6-10.3) mg/dL - Attending Attestation patient seen and examined. i have reviewed all labs, imaging, and notes. i agree with the above assessment and plan.
--- NOTE | 2018-06-24 16:58 | Anesthesia Procedures ---
Date of Encounter: 06/24/18 Time of Encounter: 16:51 Procedures: Anesthesia - Epidural Rounding Post Op Day #: 2 Procedure: Exp. Lap. Pain Control: Adequate Breakthrough Pain Meds: No Vital Signs: Vital Signs/O2 Sat, Most Current Temp Pulse Resp BP Pulse Ox 99.0 F 100 18 116/77 93 06/24/18 15:54 06/24/18 15:54 06/24/18 15:54 06/24/18 15:54 06/24/18 15:54 Mental Status: awake, alert, responsive Catheter Site Dressing Intact: Yes Erythema: No Pruritus: not present Signs of Infection At Catheter Site: No Plan: Remove Epidural Catheter Epidural Catheter removed; Tip Intact: Yes
[2018-06-24] MEDS ORDERED: Ringers Solution, Lactated 1,000 ML IVC SCH (19:45)
[2018-06-25] MEDS: Insulin LISPRO 300 UNITS/3 ML VIAL SQ SCH ×2 (00:33→05:58)
[2018-06-25 05:44] LABS: Hematocrit 33.4 % (37.5-50.1); Hemoglobin 11.6 g/dL (12.9-16.9); Mean Corpuscular HGB Conc 34.7 g/dL (31.6-35.5); Mean Corpuscular Hemoglobin 29.7 pg (28.0-33.3); Mean Corpuscular Volume 85.4 fL (83.0-100.0); Mean Platelet Volume 10.7 fL (9.4-12.4); Platelet Count 183 K/mcL (140-400); Red Blood Count 3.91 M/mcL (4.19-5.50); Red Cell Distribution Width 12.5 % (11.5-14.5)
[2018-06-25 05:56] LABS: BUN/Creatinine Ratio 13 (6-26); Blood Urea Nitrogen 8 mg/dL (6-20); Calcium 8.7 mg/dL (8.6-10.3); Carbon Dioxide 24 mEq/L (23-29); Chloride 103 mEq/L (98-107); Glucose 172 mg/dL (70-105); Magnesium 1.8 mg/dL (1.6-2.6); Osmolality,Calculated 288 (280-300); Phosphorous 2.9 mg/dL (2.7-4.5); Potassium 3.6 mEq/L (3.5-5.1); Sodium 138 mEq/L (136-145); eGFR For Non-African Americans > 60 (> 60)
[2018-06-25] MEDS: *HR* Heparin 5,000 UNIT/ML VIAL SQ SCH (05:58)
[2018-06-25 07:11] VITALS: BP 149/93
[2018-06-25] MEDS: ROPIVACAINE EP SCH (07:52)
[2018-06-25] MEDS ORDERED: *HR* OxyCODONE/APAP 5/325 TABLET PO PRN (07:58)
[2018-06-25] MEDS ORDERED: Ibuprofen 800 MG TABLET PO SCH (08:00)
--- NOTE | 2018-06-25 08:00 | Discharge Summary ---
<Mary Aguilar - Last Filed: 06/25/18 10:11> Orders not resulted at time of discharge: Pending orders 06/22/18 15:00 Tissue Flow Cytometry Routine Date of Encounter: 06/25/18 Time of Encounter: 10:14 - Discharge Diagnosis (1) Mesenteric mass Priority: Primary Status: Resolved General Surgery Exam Initial Vital Signs Temp Pulse Resp BP Pulse Ox 97.8 F 87 18 137/88 98 06/22/18 11:43 06/22/18 11:43 06/22/18 11:43 06/22/18 11:43 06/22/18 11:43 - Hospital Course Hospital course: Mr. De Los Santos is a 52 year old male who presented on 06/22/2017 for an elective exploratory laparotomy and mesenteric lymph node excision by Dr. Austin. His hospital course has been uncomplicated. His abdominal discomfort is well- controlled. He is ambulating and voiding without difficulty, tolerating a diet without nausea or vomiting, vital signs are stable, and he is afebrile. We will begin discharge planning to home with a follow-up in approximately 2 weeks - Time Spent with Patient Total time spent providing and/or coordinating discharge services: - Discharge Medications Prescriptions: New Docusate Sodium [Colace] 100 mg PO BID PRN #30 capsule PRN Reason: Contstipation RX: Ibuprofen 800 mg PO Q8H PRN #30 tablet PRN Reason: Postsurgical pain Continue RX: Pantoprazole Sodium [Protonix] 40 mg PO DAILY RX: Liraglutide [Victoza 2-Eduardo] 1.2 mg SQ DAILY RX: Insulin Glargine,Hum.rec.anlog [Basaglar Kwikpen U-100] 20 unit SQ DAILY RX: Metoclopramide HCl 5 mg PO TID RX: Methadone 10 mg PO BID RX: Ondansetron HCl [Zofran] 4 mg PO DAILY RX: Sertraline [Zoloft] 50 mg PO DAILY RX: Gabapentin [Neurontin] 600 mg PO TID Home Medications: RX: Insulin Glargine,Hum.rec.anlog [Basaglar Kwikpen U-100] 20 unit SQ DAILY 05/12/18 [History] RX: Liraglutide [Victoza 2-Eduardo] 1.2 mg SQ DAILY 05/12/18 [History] RX: Methadone 10 mg PO BID 05/12/18 [History] RX: Metoclopramide HCl 5 mg PO TID 05/12/18 [History] RX: Ondansetron HCl [Zofran] 4 mg PO DAILY 05/12/18 [History] RX: Pantoprazole Sodium [Protonix] 40 mg PO DAILY 05/12/18 [History] RX: Sertraline [Zoloft] 50 mg PO DAILY 05/12/18 [History] RX: Gabapentin [Neurontin] 600 mg PO TID 06/24/18 [History] Docusate Sodium [Colace] 100 mg PO BID PRN #30 capsule 06/25/18 [Rx] RX: Ibuprofen 800 mg PO Q8H PRN #30 tablet 06/25/18 [Rx] Allergies/Adverse Reactions: Allergy/AdvReac Type Severity Reaction Status Date / Time No Known Allergies Allergy Verified 05/28/18 10:16 Date of admission: 06/22/18 17:00 Primary care physician: Aneta Russell MD Discharging clinician: Jhony Aguilar) Anticipated date of discharge: 06/25/18 Labs on day of discharge: Labs from last 24 hours 06/25/18 06/25/18 06/25/18 05:31 04:56 04:56 WBC 6.9 RBC 3.91 L Hgb 11.6 L Hct 33.4 L MCV 85.4 MCH 29.7 MCHC 34.7 RDW 12.5 Plt Count 183 MPV 10.7 Sodium 138 Potassium 3.6 Chloride 103 Carbon Dioxide 24 BUN 8 Creatinine 0.63 L Est GFR ( Amer) > 60 Est GFR (Non-Af Amer) > 60 BUN/Creatinine Ratio 13 Glucose 172 H POC Glucose 159 H Calculated Osmolality 288 Calcium 8.7 Phosphorus 2.9 Magnesium 1.8 06/24/18 06/24/18 06/24/18 23:52 20:22 15:52 WBC RBC Hgb Hct MCV MCH MCHC RDW Plt Count MPV Sodium Potassium Chloride Carbon Dioxide BUN Creatinine Est GFR ( Amer) Est GFR (Non-Af Amer) BUN/Creatinine Ratio Glucose POC Glucose 166 H 166 H 170 H Calculated Osmolality Calcium Phosphorus Magnesium 06/24/18 12:53 WBC RBC Hgb Hct MCV MCH MCHC RDW Plt Count MPV Sodium Potassium Chloride Carbon Dioxide BUN Creatinine Est GFR ( Amer) Est GFR (Non-Af Amer) BUN/Creatinine Ratio Glucose POC Glucose 159 H Calculated Osmolality Calcium Phosphorus Magnesium - Patient Status Disposition: Home, Self-Care Condition: Good Functional capacity at discharge: independent ambulation Overall status at discharge: patient is progressing back to baseline - Discharge Instructions Instructions: Exploratory Laparotomy (DC) Follow Up With: Jhony Austin MD [Non-Partnered Physician] - 07/06/18 11:20 am Aneta Russell MD [Primary Care Provider] - Additional Instructions: General Surgical Discharge Instructions 1. No pushing, pulling, or lifting greater than 15 lbs for 6 weeks (depending upon procedure). 2. You may shower beginning today, but no tub baths, soaking, or swimming for 2 weeks. 3. You may resume driving when you are off narcotics and are safe to react in a car. 4. Take ibuprofen every 8 hours for discomfort. Resume your home methadone dose. Take narcotics as directed. Do not take more narcotics then directed and do not share your narcotics with any other person. Do not drink alcohol while on narcotics. 5. Take stool softeners (Colace) or a water based laxative (Miralax) while taking narcotics. You may hold for loose stools. 6. Report any fevers greater than 100.5F, increase abdominal discomfort, drainage that looks like pus, increased redness or pain at the surgical site, or any vomiting. 7. Report any pain in the calves, shortness of breath, or rapid heartbeat. 8. Follow-up in the office as directed. 9. If you were prescribed antibiotics, do not stop them without talking to your provider. - Diet and Activity Activity: increase activity as tolerated Diet: advance to your usual diet <Jhony Austin - Last Filed: 06/25/18 16:02> Orders not resulted at time of discharge: Pending orders 06/22/18 15:00 Tissue Flow Cytometry Routine Date of Encounter: 06/25/18 - Discharge Diagnosis (1) Mesenteric mass Status: Resolved General Surgery Exam Initial Vital Signs Temp Pulse Resp BP Pulse Ox 97.8 F 87 18 137/88 98 06/22/18 11:43 06/22/18 11:43 06/22/18 11:43 06/22/18 11:43 06/22/18 11:43 - General physical appearance well developed - Eyes normal ocular movement - ENT normocephalic - Neck no lymphadectomy - Respiratory normal expansion, normal respiratory effort - Cardiovascular Cardiovascular exam: Present: RRR - Abdomen Abdomen general surgery: Present: soft, tender (appropriately tender) - Incision Incision: Present: clean and dry, intact - Integumentary Integumentary general surgery: Present: warm and dry - Neurologic Present: CN 2-12 grossly intact - Musculoskeletal Present: normal posture - Psychiatric Psychiatric general surgery: Present: A&Ox3 - Hospital Course Hospital course: Mr. De Los Santos is a 52 year old male - Time Spent with Patient Total time spent providing and/or coordinating discharge services: Date of admission: 06/22/18 17:00 Primary care physician: Aneta Russell MD Labs on day of discharge: Labs from last 24 hours 06/25/18 06/25/18 06/25/18 05:31 04:56 04:56 WBC 6.9 RBC 3.91 L Hgb 11.6 L Hct 33.4 L MCV 85.4 MCH 29.7 MCHC 34.7 RDW 12.5 Plt Count 183 MPV 10.7 Sodium 138 Potassium 3.6 Chloride 103 Carbon Dioxide 24 BUN 8 Creatinine 0.63 L Est GFR ( Amer) > 60 Est GFR (Non-Af Amer) > 60 BUN/Creatinine Ratio 13 Glucose 172 H POC Glucose 159 H Calculated Osmolality 288 Calcium 8.7 Phosphorus 2.9 Magnesium 1.8 06/24/18 06/24/18 06/24/18 23:52 20:22 15:52 WBC RBC Hgb Hct MCV MCH MCHC RDW Plt Count MPV Sodium Potassium Chloride Carbon Dioxide BUN Creatinine Est GFR ( Amer) Est GFR (Non-Af Amer) BUN/Creatinine Ratio Glucose POC Glucose 166 H 166 H 170 H Calculated Osmolality Calcium Phosphorus Magnesium - Attending Attestation patient seen and examined. i have reviewed all labs, imaging, and notes. i agree with the above assessment and plan.
[2018-06-25] MEDS ORDERED: Gabapentin 300 MG CAPSULE PO SCH (09:00)
[2018-06-25] MEDS ORDERED: Insulin LISPRO 300 UNITS/3 ML VIAL SQ SCH ×2 (11:30→21:00)
== END 2018-06-25 12:31 | disposition home or self-care (01) | DRG 804 ==
LOC: SAMDAY 11:22 → 3ANU 17:00
PROVIDERS: ADMIT Surgery; ATTEND Surgery